=== PATIENT | female | born 1970 | race Caucasian/White ===

== ENCOUNTER 2020-01-04 06:40 | Outpatient (REF) | payer OTHER, SELFPAY | END 2020-01-04 06:41 | disposition home or self-care (01) | LOC: HO.LAB 06:40 | PROVIDERS: Visit Provider Internal Medicine | DX: Z20.828 Contact with and (suspected) exposure to other viral communicable diseases (principal) | CPT/HCPCS: C9803; U0003 ==

== ENCOUNTER 2020-01-25 10:30 | Outpatient (REF) | payer OTHER, SELFPAY ==
[2020-01-25 11:33] LABS: MANUAL DIFF FLAG NO
[2020-01-25 11:49] LABS: Glucose Urine UA NEG (NEG); Leukocyte Esterase Urine TRACE (NEG); Nitrite Urine NEG (NEG); PH 7.5 (5.0-8.0); Urine Blood NEG (NEG); Urine Ketones NEG (NEG); Urine Protein NEG (NEG-TRACE)
[2020-01-25 11:51] LABS: Basophils Percent Auto 0.6 % (0-2); Eosinophils Absolute Auto 0.1 X10*3/uL (0.0-0.4); Eosinophils Percent Auto 2.5 % (0-4); Hematocrit 37.1 % (37-47); Hemoglobin 12.6 g/dl (12.0-16.0); Lymphocytes Absolute Auto 1.6 X10*3/uL (1.2-4.9); Lymphocytes Percent Auto 43.9 % (20-40); Mean Corpuscular Hemoglobin 30.5 pg (27.0-33.0); Mean Corpuscular Volume 89.8 fL (80-98); Mean Platelet Volume 11.9 fL (9.4-12.3); Monocytes Absolute Auto 0.3 X10*3/uL (0.1-1.2); Monocytes Percent Auto 8.8 % (2-11); Neutrophils Absolute Auto 1.6 X10*3/uL (2.0-8.3); Neutrophils Percent Auto 44.2 % (45-73); Platelet Count 145 X10*3/uL (160-400); Red Blood Count 4.13 X10*6/uL (4.20-5.50); Red Cell Distribution Width 12.1 % (11.0-16.0); White Blood Count 3.5 X10*3/uL (4.8-10.8)
[2020-01-25 11:55] LABS: Anion Gap 14 (12-20); Blood Urea Nitrogen 12 mg/dL (9-16); Calcium 9.2 mg/dL (8.4-10.2); Carbon Dioxide 26 mmol/L (22-29); Chloride 105 mmol/L (96-108); Cholesterol 203 mg/dL; Estimated Glomerular Filt Rate > 60; Glucose Fasting 91 mg/dL (60-99); HDL Cholesterol 61 mg/dL; LDL Cholesterol Calculated 117 mg/dl; Sodium 141 mmol/L (135-145); Triglycerides 127 mg/dL
[2020-01-25 11:57] LABS: Appearance Urine CLEAR; Color Urine STRAW
[2020-01-25 11:58] LABS: Alanine Aminotransferase 18 U/L (0-31); Albumin Level 4.3 g/dL (3.5-5.0); Alkaline Phosphatase 87 U/L (39-117); Anion Gap 12 (12-20); Aspartate Amino Transferase 23 U/L (5-31); Bilirubin Total 0.6 mg/dL (0.0-1.0); Blood Urea Nitrogen 13 mg/dL (9-16); C Reactive Protein 0.08 mg/dL (< or = 0.50); Calcium 9.2 mg/dL (8.4-10.2); Carbon Dioxide 27 mmol/L (22-29); Chloride 106 mmol/L (96-108); Estimated Glomerular Filt Rate > 60; Glucose Random 92 mg/dL (60-115); Sodium 141 mmol/L (135-145); Total Protein 6.8 g/dL (6.5-8.0)
[2020-01-25 12:08] LABS: Bacteria Urine 2+ /LPF; RBC Urine 0 /HPF (0); Squamous Epithelial Cell Urine 3+ /LPF
[2020-01-25 12:54] LABS: Erythrocyte Sedimentation Rate 5 MM/HR (0-20)
[2020-01-26 10:52] LABS: Complement C3 100 mg/dL (83-193)
[2020-01-27 13:27] LABS: Anti DNA DS Antibody 4 IU/mL
== END 2020-01-25 10:31 | disposition home or self-care (01) ==
LOC: HO.LAB 10:30
PROVIDERS: Absent Provider Nurse Practitioner Family; PCP Family Medicine; Visit Provider Student in an Organized Health Care Education/Training Program
DX: R07.1 Chest pain on breathing (principal)
CPT/HCPCS: 36415; 80048; 80053; 80061; 81001; 85025; 85652; 86140; 86160; 86225

== ENCOUNTER → 2020-02-02 13:01 | Outpatient (BNVA) | payer OTHER, SELFPAY | PROVIDERS: Visit Provider Student in an Organized Health Care Education/Training Program | DX: Z76.89 Persons encountering health services in other specified circumstances (principal) ==

== ENCOUNTER 2020-02-16 07:07 | Outpatient (REF) | payer OTHER, SELFPAY | END 2020-02-16 07:08 | disposition home or self-care (01) | LOC: HO.LAB 07:07 | PROVIDERS: Visit Provider Internal Medicine | DX: Z20.828 Contact with and (suspected) exposure to other viral communicable diseases (principal) | CPT/HCPCS: C9803; U0003 ==

== ENCOUNTER 2020-04-13 15:32 | Outpatient (REF) | payer OTHER, SELFPAY ==
[2020-04-13 16:16] LABS: MANUAL DIFF FLAG NO
[2020-04-13 16:21] LABS: Basophils Percent Auto 0.3 % (0-2); Eosinophils Absolute Auto 0.1 X10*3/uL (0.0-0.4); Eosinophils Percent Auto 2.7 % (0-4); Hematocrit 38.6 % (37-47); Hemoglobin 12.9 g/dl (12.0-16.0); Lymphocytes Absolute Auto 1.5 X10*3/uL (1.2-4.9); Mean Corpuscular HGB Conc 33.4 g/dl (31.0-35.0); Mean Corpuscular Hemoglobin 30.6 pg (27.0-33.0); Mean Corpuscular Volume 91.7 fL (80-98); Mean Platelet Volume 11.8 fL (9.4-12.3); Monocytes Absolute Auto 0.4 X10*3/uL (0.1-1.2); Monocytes Percent Auto 11.2 % (2-11); Neutrophils Absolute Auto 1.6 X10*3/uL (2.0-8.3); Neutrophils Percent Auto 44.8 % (45-73); Platelet Count 142 X10*3/uL (160-400); Red Blood Count 4.21 X10*6/uL (4.20-5.50); Red Cell Distribution Width 12.1 % (11.0-16.0); White Blood Count 3.7 X10*3/uL (4.8-10.8)
[2020-04-13 16:22] LABS: Glucose Urine UA NEG (NEG); Leukocyte Esterase Urine NEG (NEG); Nitrite Urine NEG (NEG); Specific Gravity - Urine 1.015 (1.005-1.025); Urine Blood NEG (NEG); Urine Ketones NEG (NEG); Urine Protein NEG (NEG-TRACE)
[2020-04-13 16:26] LABS: Appearance Urine CLEAR; Color Urine YELLOW
[2020-04-13 16:49] LABS: Alanine Aminotransferase 18 U/L (0-31); Albumin Level 4.3 g/dL (3.5-5.0); Alkaline Phosphatase 101 U/L (39-117); Anion Gap 10 (12-20); Aspartate Amino Transferase 21 U/L (5-31); Bilirubin Total 0.3 mg/dL (0.0-1.0); Blood Urea Nitrogen 16 mg/dL (9-16); C Reactive Protein 0.08 mg/dL (< or = 0.50); Calcium 9.1 mg/dL (8.4-10.2); Carbon Dioxide 29 mmol/L (22-29); Chloride 106 mmol/L (96-108); Cholesterol 197 mg/dL; Estimated Glomerular Filt Rate > 60; Glucose Fasting 74 mg/dL (60-99); HDL Cholesterol 59 mg/dL; LDL Cholesterol Calculated 100 mg/dl; Sodium 141 mmol/L (135-145); Total Protein 6.7 g/dL (6.5-8.0); Triglycerides 193 mg/dL
[2020-04-13 17:10] LABS: TSH reflex Free T4 1.72 uIU/mL (0.32-4.0)
[2020-04-13 17:50] LABS: Bacteria Urine 1+ /LPF; RBC Urine 0-2 /HPF (0); Renal Epithelial Cells Urine 1+ /LPF; Squamous Epithelial Cell Urine 2+ /LPF; WBC Urine 0-2 /HPF (0-4)
[2020-04-13 18:20] LABS: Erythrocyte Sedimentation Rate 2 MM/HR (0-20)
[2020-04-14 14:16] LABS: Complement C3 105 mg/dL (83-193)
[2020-04-16 13:46] LABS: Anti DNA DS Antibody 5 IU/mL
== END 2020-04-13 15:33 | disposition home or self-care (01) ==
LOC: HO.LAB 15:32
PROVIDERS: Absent Provider Student in an Organized Health Care Education/Training Program; PCP Family Medicine; Visit Provider Family Medicine
DX: Z00.00 Encounter for general adult medical examination without abnormal findings (principal); M32.9 Systemic lupus erythematosus, unspecified
CPT/HCPCS: 36415; 80053; 80061; 81001; 84443; 85025; 85652; 86140; 86160; 86225

== ENCOUNTER 2020-10-10 18:09 | Outpatient (REF) | payer OTHER, SELFPAY | END 2020-10-10 18:10 | disposition home or self-care (01) | LOC: HO.LNP 18:09 | PROVIDERS: Visit Provider Family Medicine | DX: Z20.822 Contact with and (suspected) exposure to COVID-19 (principal); B34.9 Viral infection, unspecified | CPT/HCPCS: U0003; U0005 ==

== ENCOUNTER 2020-11-07 12:47 | Outpatient (REF) | payer OTHER, SELFPAY ==
--- NOTE | ~2020-11-07 | CT_ITS ---
EXAMINATION: CT CHEST WITHOUT CONTRAST CLINICAL INFORMATION: Followup pulmonary nodules. COMPARISON: Previous chest CT June 2018 TECHNIQUE: Multidetector volumetric CT imaging of the chest was done. Axial MIP volume rendering provided. Sagittal and coronal reformatted images were obtained. This CT examination was performed using dose optimization techniques as appropriate, variously including the following: *Automated exposure control *Adjustment of mA and/or kV according to patient size (this includes techniques or standardized protocols for targeted exams where dose is matched to indication/reason for exam; i.e. extremities or head) *Use of iterative reconstruction technique DLP: 125 mGy-cm FINDINGS: WILDLIFE ENFORCEMENT MAJOR: Unremarkable. LUNGS: The small calcified and noncalcified pulmonary nodules are stable. The largest pulmonary nodules are a 4 mm right upper lobe nodule axial image 110 series 5 and 4 mm peripheral or subpleural left lower lobe nodule axial image 375 series 5. No new pulmonary nodule is seen. There is a small left posterior diaphragmatic hernia containing fat. MEDIASTINUM: The mediastinum is normal. PLEURA: There is no pleural effusion. No pleural mass or thickening. AXILLA: No lymphadenopathy. UPPER ABDOMEN: There are small 5 mm low-attenuation liver lesions in the right lobe that are stable axial image 49 and 56 series 3. These probably represent small cysts. OSSEOUS STRUCTURES: There is curvature of the thoracic spine to the right. CT/CT chest wo con IMPRESSION: Stable small pulmonary nodules.
== END 2020-11-07 12:48 | disposition home or self-care (01) ==
LOC: HO.CT 12:47
PROVIDERS: PCP Family Medicine; Visit Provider Family Medicine
DX: R91.8 Other nonspecific abnormal finding of lung field (principal)
CPT/HCPCS: 71250

== ENCOUNTER → 2021-03-09 14:21 | Outpatient (BNVA) | payer OTHER, SELFPAY | PROVIDERS: PCP Family Medicine; Referring Provider Family Medicine; Visit Provider Nurse Practitioner Family | DX: Z12.11 Encounter for screening for malignant neoplasm of colon (principal); K59.04 Chronic idiopathic constipation | CPT/HCPCS: 99202 ==

== ENCOUNTER 2021-04-19 15:58 | Outpatient (REF) | payer OTHER, SELFPAY ==
--- NOTE | ~2021-04-19 | XR_ITS ---
EXAMINATION: XR CHEST CLINICAL INFORMATION: Chest pain COMPARISON: November 07, 2020 TECHNIQUE: 2 views of the chest were obtained. FINDINGS: There is no evidence of acute parenchymal disease, pneumothorax, or pleural effusion. Heart normal size. No evidence of pulmonary edema. XR/XR chest 2V IMPRESSION: No acute disease.
== END 2021-04-19 15:59 | disposition home or self-care (01) ==
LOC: HO.HMGCX 15:58
PROVIDERS: PCP Family Medicine
DX: R07.9 Chest pain, unspecified (principal)
CPT/HCPCS: 71046

== ENCOUNTER 2021-12-25 07:25 | Day surgery (SDC) | payer OTHER, SELFPAY ==
--- NOTE | 2021-12-22 08:19 | HO.ANESPROP2 ---
Documented by User: Samantha Rivas NP 12/22/21 08:20 HPI - Anesthesia Eval Consult details Narrative: 51yo F for Colonoscopy Plaquenil for Lupus PMFSH Active Problems Active Problems: All Active Problems (Updated 12/19/21 @ 11:01 by Ngozi Rose, RN) Lupus (Acute) Laboratory examination ordered as part of a routine general medical examination (Acute) Screening for colon cancer (Acute) Breast cancer screening by mammogram (Acute) Screening for cervical cancer (Acute) Adult general medical exam (Acute) Viral illness (Acute) Proctalgia (Acute) Pulmonary nodules (Acute) Right-sided chest pain (Acute) Intercostal pain (Acute) Inspiratory pain (Acute) Past Medical History Medical History (Updated 12/19/21 @ 11:01 by Ngozi Rose RN) History of constipation History of lupus Intercostal pain Family History Family History Father CVD (cardiovascular disease) Cancer HTN (hypertension) Stroke Mother Alzheimer disease Sister No problems noted. Daughter No problems noted. Surgical History Surgical History No pertinent past surgical history Social History Social History Alcohol intake: current Alcohol intake frequency: holidays/special occasions only Patient Tobacco Use Status: Never used Tobacco Have you been hit, kicked, punched, or otherwise hurt by someone within the past year? If so, by whom?: No Are you DNR?: No Advance Directives: No Advance Directives Information Provided: Yes Recently lost weight without trying: No Nutrition Risks: No Nutritional Risk Patient : No Meds Allergies Allergy/AdvReac Type Severity Reaction Status Date / Time Penicillins [PENICILLINS] Allergy Unknown RASH Verified 04/19/21 15:04 Exam Exam Date and Time: December 22, [id number] Assessment and Plan Assessment Anesthesia Assessment: Chart Reviewed Documented by User: Alondra Montero MD 12/25/21 08:02 [facility] Past Medical History Medical History (Updated 12/19/21 @ 11:01 by Ngozi Rose RN) History of constipation History of lupus Intercostal pain Family History Family History Father CVD (cardiovascular disease) Cancer HTN (hypertension) Stroke Mother Alzheimer disease Sister No problems noted. Daughter No problems noted. Surgical History Surgical History No pertinent past surgical history History of Problems with Anesthesia: No Social History Social History Alcohol intake: current Alcohol intake frequency: holidays/special occasions only Patient Tobacco Use Status: Never used Tobacco Have you been hit, kicked, punched, or otherwise hurt by someone within the past year? If so, by whom?: No Are you DNR?: No Advance Directives: No Advance Directives Information Provided: Yes Recently lost weight without trying: No Nutrition Risks: No Nutritional Risk Patient : No Meds Allergies Allergy/AdvReac Type Severity Reaction Status Date / Time Penicillins [PENICILLINS] Allergy Unknown RASH Verified 04/19/21 15:04 Exam Airway Mallampati Class: II TM Dist: >3cm Neck ROM: Full Loose/Missing/Broken Teeth: No Heart: RRR Lungs: CTA Assessment and Plan Assessment Anesthesia Assessment: Anesthesia Plan Discussed Final Anesthetic Review History of Problems with Anesthesia: No NPO: Yes ASA Class: II Final Preanesthetic Review: Meds/Allgs Chart Reviewed, Consent Obtained/Reviewed and Anes Risks/Benef Reviewed Patient Risk: Low Procedure Risk: Low Anesthetic Plan Anesthetic Plan: MAC: Disposition: Standard PACU
[2021-12-25 06:08] VITALS: BMI 22.6
--- NOTE | 2021-12-25 07:14 | MHC.SHP ---
Pre-Procedural Eval Section A Date of Service: 12/25/21 The patient is an INPATIENT: No The History & Physical has been completed within 30 days and I have reviewed it.: No Section B Chief Complaint: screening Details of Present Illness: Colon cancer screening, chronic constipation Relevant Family History (Specify if Yes): No Present Medications: see Short Stay Collaborative assessment Medical History: Significant History (Inspiratory pain Intercostal pain) History of Previous Operations: No relevant previous surgery Allergies: Allergies Allergy/AdvReac Type Severity Reaction Status Date / Time Penicillins [PENICILLINS] Allergy Unknown RASH Verified 04/19/21 15:04 Review of Systems Sugical H&P ROS: Negative: Constitution, Cardiovascular, Respiratory and Gastrointestinal Exam Surgical H&P Exam: Normal: Heart, Normal: Lungs, Normal: Extremities and Normal: Abdomen Plan Diagnosis/Plan: Unchanged I have reviewed the history and physical and performed a pertinent physical examination on my patient. No changes have occurred unless specified.
[2021-12-25 07:30] VITALS: BP 100/56; PULSE 74; RESP 18; TEMP 36.3; O2SAT 97
[2021-12-25] MEDS: Lactated Ringers 1,000 ML 100 ML IVCONT (07:50)
--- NOTE | 2021-12-25 08:38 | P.BOP_ITS ---
Brief Operative Note Date of Service: 12/25/21 Pre-op diagnosis: colon cancer screening, hemorrhoids Post-op diagnosis: other ( colon polyp, diverticulosis, hemorrhoids) Procedure: COLONOSCOPY TO CECUM WITH BIOPSIES Surgeon: Meenu Burnette MD Anesthesia: MAC Was an Automation And Controls Manager used for this Procedure?: Yes Automation And Controls Manager: Martine Angel Estimated blood loss (mL): 0 Pathology: other (A. ascending colon polyp) Condition: stable Disposition: PACU
--- NOTE | 2021-12-25 08:39 | W.PM.OPN ---
Operative Note Operative Note Date of Service: 12/25/21 Narrative: Pre-op diagnosis: colon cancer screening, hemorrhoids Post-op diagnosis:?other ( colon polyp, diverticulosis, hemorrhoids) Surgeon: Meenu Burnette MD Anesthesia:?MAC COLONOSCOPY TILL CECUM WITH BIOPSIES Consent: Indications for the procedure and potential complications of bleeding, perforation, reaction to medications and missed diagnosis were discussed with the patient and informed consent was obtained. Instrument: Olympus PCF H 190 L variable stiffness pediatric colonoscope Monitoring: Vital signs and clinical assessment, intermittent blood pressure monitoring, continuous EKG monitoring, Pulse oximetry and Carbon Dioxide monitoring were done throughout the procedure. Colon withdrawl time was 20 minutes. Procedure: The patient was placed in the left lateral decubitis position and pre-procedure medications were administered. After a digital rectal examination of the ano-rectum, the video colonoscope was inserted into the rectum and advanced through the colon to the cecum. The colonoscope was slowly withdrawn in a retrograde panoramic fashion and the colon mucosa was carefully examined including a retroflexed view of the rectum. Findings and interventions are described below. Procedure Difficulty: colon was long and tortuous and there was some loop formation Findings: Terminal Ileum: Not evaluated Cecum: Normal Ascending Colon: A 5-6 mm sessile polyp in the distal AC - removed with a cold bx Transverse Colon: Normal Descending Colon: Normal Sigmoid Colon: Moderate diverticulosis Rectum: Normal Ano-rectum: Moderate to large internal hemorrhoids and perianal skin tags Colon preparation: Good Impression and Post Procedure Diagnosis: Colonoscopy Findings: One small polyp removed Moderate diverticulosis seen in the sigmoid colon Moderate to large hemorrhoids on retroflexed exam. Plan: Await pathology results Patient has an appointment on 01/08/22 in the GI Clinic with Janae Gaines FNP-BC. Repeat Colonoscopy interval based on path results - in 5 years if polyps are adenomatous and 10 years if polyps are hyperplastic. Above findings were reviewed with the patient and hemorrhoids, colon polyps and diverticulosis handouts were given in the discharge area. Hydrocortisone cream was prescribed for hemorrhoids since patient is not getting relief with preparation H.
[2021-12-25 09:18] VITALS: BP 96/69; PULSE 74; RESP 16; TEMP 36.6; O2SAT 98
[2021-12-25 09:33] VITALS: BP 101/59; PULSE 65; RESP 16; O2SAT 98
== END 2021-12-25 10:20 | disposition home or self-care (01) ==
PROVIDERS: PCP Family Medicine; Visit Provider Internal Medicine Gastroenterology
PROC: 0DJD8ZZ Inspection of Lower Intestinal Tract, Via Natural or Artificial Opening Endoscopic (ICD-10-PCS; CPT 45378; principal; 2021-12-25 08:30)
DX: Z12.11 Encounter for screening for malignant neoplasm of colon (principal); K63.5 Polyp of colon; K57.30 Diverticulosis of large intestine without perforation or abscess without bleeding; K64.8 Other hemorrhoids; K59.04 Chronic idiopathic constipation; R07.82 Intercostal pain; Z88.0 Allergy status to penicillin
CPT/HCPCS: 45380; 88305

== ENCOUNTER → 2022-01-08 09:40 | Outpatient (BNVA) | payer OTHER, SELFPAY | PROVIDERS: PCP Family Medicine; Visit Provider Nurse Practitioner Family | DX: K57.90 Diverticulosis of intestine, part unspecified, without perforation or abscess without bleeding (principal); K59.01 Slow transit constipation; K64.9 Unspecified hemorrhoids; Z98.890 Other specified postprocedural states | CPT/HCPCS: 99212 ==

== ENCOUNTER 2022-02-27 15:33 | Outpatient (REF) | payer OTHER, SELFPAY ==
--- NOTE | ~2022-02-27 | XR_ITS ---
EXAMINATION: XR SHOULDER, LEFT CLINICAL INFORMATION: M25.512 - Pain in left shoulder COMPARISON: CT chest 11/07/2020. z chest radiograph 11/24/2007 TECHNIQUE: Left shoulder is imaged in 4 views. FINDINGS: No fracture, dislocation, destructive process, or visible rotator cuff calcifications. Acromioclavicular alignment normal, similar to 2008. No gross arthropathy. There is borderline spurring from the inferior glenoid likely at origin inferior glenohumeral ligament. XR/XR shoulder LT min 2V IMPRESSION: Unremarkable left shoulder.
== END 2022-02-27 15:34 | disposition home or self-care (01) ==
LOC: HO.HMGCX 15:33
PROVIDERS: PCP Family Medicine; Visit Provider Family Medicine
DX: M25.512 Pain in left shoulder (principal)
CPT/HCPCS: 73030

== ENCOUNTER → 2022-04-03 09:22 | Outpatient (BNVA) | payer OTHER, SELFPAY | PROVIDERS: PCP Family Medicine; Visit Provider Nurse Practitioner Family | DX: K57.30 Diverticulosis of large intestine without perforation or abscess without bleeding (principal); K59.04 Chronic idiopathic constipation; K64.9 Unspecified hemorrhoids | CPT/HCPCS: 99212 ==

== ENCOUNTER 2023-01-09 16:13 | Outpatient (AMB) | payer OTHER, SELFPAY ==
--- NOTE | 2023-01-09 16:43 | AM.OFFVISNUR ---
Intake Intake Visit Reasons: flu shot Allergies Penicillins [PENICILLINS] Allergy (Unknown, Verified 04/03/22 09:30) RASH Office Procedures Flu Questionnaire Does the patient have a severe egg allergy?: No Does the patient have severe life threatening allergies?: No Does the patient have a fever or illness today?: No Has the patient ever had Guillain-Hamilton Syndrome?: No Has the patient ever had any past reaction to a flu shot?: No Immunizations flu vacc [id number] 6mos up(PF) 60 mcg(15 mcgx4)/0.5 mL IM syringe Performing Provider: Tomas Martin MD Performing Location: [facility] Administered by: Ngozi Reed RN on 01/09/23 16:44 Dose Route Admin Location Dispensed Lot Number Expiration Date NDC [employer] Chair 0.5 mL IM Right Deltoid 0.5 mL [id number] 08/18/23 24686-379-29 [employer] VIS Given Date VIS Provided VIS Publication Date 01/09/23 Single Vaccine 20 Eligibility Eligibility Date Funding Source Not VF Eligible 01/09/23 Private Administration Comments: declined vis Coding Assessment & Plan Assessment & Plan Orders: Orders Influenza [id number] Immunization Today Z23 - Encounter for immunization
== END 2023-01-09 16:42 | disposition home or self-care (01) ==
LOC: HO.HMGFM 16:13
PROVIDERS: PCP Family Medicine; Visit Provider Family Medicine
DX: Z23 Encounter for immunization (principal)
CPT/HCPCS: 90471; 90686

== ENCOUNTER 2024-02-04 08:34 | Outpatient (AMB) | payer OTHER, SELFPAY ==
[2024-02-04 08:48] VITALS: BP 108/60; PULSE 72; O2SAT 96; BMI 24.5
--- NOTE | 2024-02-04 08:48 | A.OFFVIS_ITS ---
Vital Signs 02/04/24 08:48 Height 5 ft 6 in Weight 152 lb 1.903 oz BMI 24.5 BP 108/60 Blood Pressure Location Lt brachial Position Sitting Pulse 72 Pulse Source Pulse Oximeter Pulse Oximetry (%) 96 Oxygen Delivery Method Room Air Intake Visit Reasons: Lupus Intake Note: Patient is here to follow up on lupus today. Allergies Penicillins [PENICILLINS] Allergy (Unknown, Verified 02/04/24 08:49) RASH HPI HPI Lupus: Details: She has had labs done online revealing elevated alkaline phosphatase She gets a nose sore every 4months but not now. She had viral illness with secondary pneumonia treated with antibiotic after thanksgi. No fevers, rash, dyspnea, pleurisy, oral ulcers, sicca symptoms, Raynaud's phenomenon and Urinary symptoms. [facility] Medical History (Updated 02/04/24 @ 12:18 by Kojo Gallegos MD) Diverticulosis History of constipation History of lupus Intercostal pain Surgical History Hx of colonoscopy No pertinent past surgical history Family History Father CVD (cardiovascular disease) Cancer HTN (hypertension) Stroke Mother Alzheimer disease Sister No problems noted. Daughter No problems noted. Social History Housing: House Alcohol intake: current Alcohol intake frequency: holidays/special occasions only Patient Tobacco Use Status: Never used Tobacco e-Cigarette/Vaping Use: Never Used Second Hand Smoke Exposure: No service: No Current occupational status: employed Current occupational exposures/hazards: No Cognitive needs: No Hearing needs: No Vision needs: No Physical Exam Vital Signs: Last Vital Signs Pulse 72 02/04/24 08:48 BP 108/60 02/04/24 08:48 Pulse Ox 96 02/04/24 08:48 Oxygen Delivery Method Room Air 02/04/24 08:48 BMI result Body Mass Index 24.5 Assessment & Plan Assessment & Plan (1) SLE (systemic lupus erythematosus): Comment: Controlled on hydroxychloroquine. She had online testing done, which revealed elevated alkaline phosphatase. She had a URI prior to doing labs, which may influence lab results. I will check alkaline phosphatase this visit. If it remains elevated, I will ask her to follow-up with PCP. Less likely alkaline phosphatase elevation is related to chronic NSAID use as it is more common to have mild transaminitis with chronic NSAID use rather than isolated elevation of alkaline phosphatase. Code(s): M32.9 - Systemic lupus erythematosus, unspecified Category: Medical Plan: Continue hydroxychloroquine 200 mg daily. She has an upcoming eye exam for hydroxychloroquine surveillance Labs to evaluate for disease and drug monitoring ordered Return to clinic in 6 months. She will be in [place] until June. [facility] (2) Muscle strain of gluteal region: Comment: Left side, chronic and intermittent. She agreed to physical therapy. Code(s): S76.019A - Strain of muscle, fascia and tendon of unspecified hip, initial encounter Category: Medical Qualifiers: Encounter type: initial encounter Laterality: left Qualified Code(s): S76.012A - Strain of muscle, fascia and tendon of left hip, initial encounter Plan: PT ordered Return to clinic in 6 months Orders: Orders Creatinine Today Z79.60 - halfway (current) use of unspecified immunomodulators and immunosuppressants Protein Creatinine Ratio, Ur Today M32.9 - Systemic lupus erythematosus, unspecified Alkaline Phosphatase Today M32.9 - Systemic lupus erythematosus, unspecified Erythrocyte Sedimentation Rate Today M32.9 - Systemic lupus erythematosus, unspecified C Reactive Protein Today M32.9 - Systemic lupus erythematosus, unspecified Complete Blood Count Auto Diff Today Z79.60 - halfway (current) use of unspecified immunomodulators and immunosuppressants Anti Extractable Nuclear Ag Today M32.9 - Systemic lupus erythematosus, unspecified Anti DNA DS Antibody Today M32.9 - Systemic lupus erythematosus, unspecified Complement C4 Today M32.9 - Systemic lupus erythematosus, unspecified Complement C3 Today M32.9 - Systemic lupus erythematosus, unspecified UA w Microscopic Today M32.9 - Systemic lupus erythematosus, unspecified Hepatitis B,C Profile Today M32.9 - Systemic lupus erythematosus, unspecified T Spot TB Today M32.9 - Systemic lupus erythematosus, unspecified Liver Panel Today M32.9 - Systemic lupus erythematosus, unspecified Referrals Physical Medicine and Rehabilitation Referral S76.019A - Strain of muscle, fascia and tendon of unspecified hip, initial encounter Coding Level of Care Code Est Pt Level 4 (74024) Complex EM visit Add On G2211 Diagnoses SLE (systemic lupus erythematosus) M32.9 Muscle strain of left gluteal region, initial encounter S76.012A Encounter type: initial encounter Laterality: left
== END 2024-02-04 09:25 | disposition home or self-care (01) ==
PROVIDERS: PCP Internal Medicine; Visit Provider Internal Medicine Rheumatology
DX: M32.9 Systemic lupus erythematosus, unspecified (principal); S76.012A Strain of muscle, fascia and tendon of left hip, initial encounter
CPT/HCPCS: 99214

== ENCOUNTER → 2024-02-04 08:34 | Outpatient (BNVA) | payer OTHER, SELFPAY | PROVIDERS: PCP Internal Medicine; Visit Provider Internal Medicine Rheumatology ==

== ENCOUNTER 2024-02-06 10:46 | Outpatient (REF) | payer OTHER, SELFPAY ==
[2024-02-06 13:39] LABS: MANUAL DIFF FLAG NO
[2024-02-06 13:45] LABS: Basophils Percent Auto 0.7 % (0-2); Eosinophils Absolute Auto 0.1 X10*3/uL (0.0-0.4); Eosinophils Percent Auto 2.7 % (0-4); Hematocrit 37.2 % (37.0-47.0); Hemoglobin 12.9 g/dl (12.0-16.0); Imm Gran Abs Auto 0.01 X10*3/uL (0.00-0.03); Imm Gran Pct Auto 0.2 % (0.0-0.4); Lymphocytes Absolute Auto 1.4 X10*3/uL (1.2-4.9); Lymphocytes Percent Auto 33.4 % (20-40); Mean Corpuscular HGB Conc 34.7 g/dl (31.0-35.0); Mean Corpuscular Hemoglobin 30.3 pg (27.0-33.0); Mean Corpuscular Volume 87.3 fL (80.0-98.0); Mean Platelet Volume 12.4 fL (9.4-12.3); Monocytes Absolute Auto 0.4 X10*3/uL (0.1-1.2); Neutrophils Absolute Auto 2.2 x10*3/uL (2.0-8.3); Platelet Count 144 X10*3/uL (160-400); Red Blood Count 4.26 X10*6/uL (4.20-5.50); Red Cell Distribution Width 13.2 % (11.0-16.0); White Blood Count 4.1 X10*3/uL (4.8-10.8)
[2024-02-06 13:50] LABS: Appearance Urine Clear; Color Urine Yellow; Glucose Urine UA Negative (Negative); Leukocyte Esterase Urine Trace (Negative); Nitrite Urine Negative (Negative); Specific Gravity - Urine <= 1.005 (1.005-1.025); UMIC TRIGGER UA YES; Urine Blood Negative (Negative); Urine Ketones Negative (Negative); Urine Protein Negative (Neg-Trace)
[2024-02-06 13:55] LABS: Bacteria Urine None Seen (None Seen); Hyaline Casts Urine 0-2 /LPF (0-2); RBC Urine 0-2 /HPF (0-2); Squamous Epithelial Cell Urine 0-2 /HPF (0-2); WBC Urine 0-5 /HPF (0-5)
[2024-02-06 13:58] LABS: Alanine Aminotransferase 29 U/L (0-31); Alkaline Phosphatase 120 U/L (39-117); Aspartate Amino Transferase 34 U/L (5-31); Bilirubin Direct 0.2 mg/dL (0.0-0.5); Bilirubin Total 0.6 mg/dL (0.0-1.0); C Reactive Protein 0.14 mg/dL (< or = 0.50); Estimated Glomerular Filt Rate > 60; Total Protein 6.5 g/dL (6.5-8.0)
[2024-02-06 14:05] LABS: Creatinine Urine 16.66 mg/dL; Total Protein Urine Random < 7 mg/dL (<12)
[2024-02-06 14:21] LABS: HBc Num1 0.12 S/CO (0.00-0.79); HBsAGNum1 0.41 S/CO (0.00-0.99); Hepatitis B Core Antibody Nonreactive (Nonreactive); Hepatitis B Surface Antigen Negative (Negative); ~HepC Num1 0.08 S/CO (0.00-0.79); ~Hepatitis B Surface Antibody NONREACTIVE (Nonreactive); ~Hepatitis C Antibody Nonreactive (Nonreactive)
[2024-02-06 14:25] LABS: Erythrocyte Sedimentation Rate 5 MM/HR (0-20)
[2024-02-07 14:13] LABS: Anti DNA DS Antibody 3 IU/mL; SM/Ribonucleoprotein Ab <1.0 NEG AI (<1.0 NEG); Smith Protein <1.0 NEG AI (<1.0 NEG)
[2024-02-07 14:49] LABS: Complement C3 122 mg/dL (83-193)
[2024-02-09 16:24] LABS: TS Negative Control Passed; TS Panel A 0; TS Panel B 1; TS Positive Control Passed; TSpotTB Negative (Negative)
== END 2024-02-06 10:47 | disposition home or self-care (01) ==
LOC: HO.HMGCLDS 10:46
PROVIDERS: PCP Internal Medicine; Visit Provider Internal Medicine Rheumatology
DX: M32.9 Systemic lupus erythematosus, unspecified (principal); Z79.60 Long term (current) use of unspecified immunomodulators and immunosuppressants
CPT/HCPCS: 36415; 80076; 81001; 82565; 82570; 84156; 85025; 85652; 86140; 86160; 86225; 86235; 86481; 86704; 86706; 86803; 87340

== ENCOUNTER 2024-07-06 10:15 | Outpatient (REF) | payer OTHER, SELFPAY ==
--- OUTSIDE RECORDS SUMMARY | 2024-07-06 10:51 | XMS_ITS | Clinical Summary ---
Author Organization [facility] [place] [address] [place] [address] Care Team Providers Care Deputy County Counsel Name Role Phone Unavailable Primary Care Provider Unavailabl e Allergies Active Allergy Reactions Criticality Noted Date Comments Penicillanic Sulfone Bl Beta -Lactamase Inhibitors Hives 05/25/2024 Penicillins Swelling High 03/22/2024 Medications celecoxib (CeleBREX) 100 mg capsule Take 100 mg by mouth 1 (one) time each day. Active hydroxychloroqui ne (PLAQUENIL) 200 mg tablet Take by mouth. Active Active Problems No known active problems Encounters Date Type Department Care Team Description 05/25/2024 2:00 PM EDT Office Visit [facility] [address], [facility] [address] [place] [address] [place], [facility] Encounter for dental examination and cleaning without abnormal findings (Primary Dx) 05/25/2024 1:00 PM EDT Office Visit [facility] [address], [facility] [address] [place] [address] Soo Oliveira, MILES Dental caries, unspecified (Primary Dx); Impacted teeth from Last 3 Months Social History Tobacco Use Types Packs/Day Years Used Date Smoking Tobacco: Never Smokeless Tobacco: Never Tobacco Cessation:Counseling Given: Not Answered Alcohol Use Standard Drinks/Week Comments Never 0 (1 standard drink = 0.6 oz pur e alcohol) Comments Unknown Sex and Gender Information Value Date Recorded Sex Assigned at Not on file Legal Sex Female 7:09 AM PDT Gender Identity Not on file Sexual Orientation Not on file Last Filed Vital Signs Vital Sign Reading Time Taken Comments Blood Pressure 115/87 05/25/2024 1:21 PM EDT Pulse 79 05/25/2024 1:21 PM EDT Temperature - - Respiratory Rate - - Oxygen Saturation - - Inhaled Oxygen Concentration - - Weight - - Height - - Body Mass Index - - Plan of Treatment Health Maintenance Due Date Last Done Comments Dental X-Ray: Bitewings 1970 OralFitnessCheck Screening 11/24/2024 05/25/2024 Dental Oral Exam 11/25/2024 05/25/2024 Dental Prophylaxis 11/25/2024 05/25/2024 Dental CBCT 05/26/2027 05/25/2024 Dental X-Ray: Full Mouth 05/27/2027 05/25/2024 Dental X-Ray: Panoramic 05/27/2027 05/25/2024 Meningococcal B Vaccine Aged Out No l onger eligible based on patient's age to complete this topic Procedures Procedure Name Priority Date/Time Associated Diagnosis Comments ORAL HYGIENE INSTRUCTIONS Routine 05/25/2024 2:00 PM EDT Encounter for dental examination and cleaning without abnormal findings PROPHYLAXIS - ADULT Routine 05/25/2024 2 :00 PM EDT Encounter for dental examination and cleaning without abnormal findings ORAL FITNESS AMMP-8 MANUALLY RESULTED Routine 05/25/2024 1:34 PM EDT ORALFITNESSCHECK INITIAL SCREEN Routine 05/25/2024 1:00 PM EDT NEW PATIENT PHOTO INTRA ORAL Routine 05/25/2024 1:00 PM EDT NEW PATIENT PHOTO INTRA ORAL Routine 05/25/2024 1:00 PM EDT NEW PATIENT PHOTO INTRA ORAL Routine 05/25/2024 1:00 PM EDT NEW PATIENT PHOTO INTRA ORAL Routine 05/25/2024 1:00 PM EDT NEW PATIENT INTRAORAL - PERIAPICAL EACH ADDITIONAL RADIOGRAPHIC IMAGE Routine 05/25/2024 1:00 PM EDT NEW PATIENT INTRAORAL - PERIAPICAL EACH ADDITIONAL RADIOGRAPHIC IMAGE Routine 05/25/2024 1:00 PM EDT SPECIAL WARF[employer] COMBATANT CREWMAN FOUR BITEWING XRAYS Routine 1:00 PM EDT NEW PATIENT SPECIAL EXAM - ADULT Routine 05/25/2024 1:00 PM EDT NEW PATIENT INTRAORAL - PERIAPICAL FIRST RADIOGRAPHIC IMAGE Routine 05/25/2024 1:00 PM EDT SPECIAL WARF[employer] COMBATANT CREWMAN CBCT Routine 05/25/2024 1:00 PM EDT NEW PATIENT INTRAORAL - PERIAPICAL EACH ADDITIONAL RADIOGRAPHIC IMAGE Routine 05/25/2024 1:00 PM EDT NEW PATIENT INTRAORAL - PERIAPICAL EACH ADDITIONAL RADIOGRAPHIC IMAGE Routine 05/25/2024 1:00 PM EDT NEW PATIENT INTRAORAL - PERIAPICAL EACH ADDITIONAL RADIOGRAPHIC IMAGE Routine 05/25/2024 1:00 PM EDT 30 PREFABRICATED POST AND CORE IN ADDITION TO CROWN Routine 05/25/2024 12:00 AM EDT 7 CEREC CROWN Routine 05/25/2024 12:00 AM EDT 9 DL COMPOSITE FILLING Routine 12:00 AM EDT 10 CEREC CROWN Routine 05/25/2024 12:00 AM EDT 30 CEREC CROWN Routine 05/25/2024 12:00 AM EDT 30 ROOT CANAL Routine 05/25/2024 12:00 AM EDT 29 DO AMALGAM FILLING Routine 05/25/2024 12:00 AM EDT 31 MO COMPOSITE FILLING Routine 05/26/19 25 12:00 AM EDT 4 DO COMPOSITE FILLING Routine 12:00 AM EDT 3 MO COMPOSITE FILLING Routine 12:00 AM EDT 2 LO AMALGAM FILLING Routine 05/25/2024 12:00 AM EDT 12 MOD COMPOSITE FILLING Routine 025 12:00 AM EDT 15 LO AMALGAM FILLING Routine 05/25/2024 12:00 AM EDT 20 DO COMPOSITE FILLING Routine 05/26/19 25 12:00 AM EDT 13 CEREC CROWN Routine 05/25/2024 12:00 AM EDT 14 PFM CROWN Routine 05/25/2024 12:00 AM EDT 18 PFM CROWN Routine 05/25/2024 12:00 AM EDT 19 PFM CROWN Routine 05/25/2024 12:00 AM EDT from Last 3 Months Results * (ABNORMAL) Oral Fitness AMMP-8 manually resulted (05/25/2024 1:34 PM EDT) Pathologist [facility] Active matrix metalloproteina se-8 level 31(A) 0 - 10 ng/mL Saliva Salivary gland structure / Unknown 05/25/2024 1:34 PM EDT Soo Oliveira DMD PDS POCT [facility] Fi nal Result from Last 3 Months
--- OUTSIDE RECORDS SUMMARY | 2024-07-06 10:51 | XMS_ITS ---
Author Organization [facility] [employer] [facility] Address [address] [place] [address] Care Team Providers Care Equipment Application Specialist Name Role Phone AILIN BARCLAY Primary Care Provider SUNNY RODRIGUEZ [phone] Allergies Allergen (clinical drug ingredient) Drug/Non Drug Allergy documented on EMR Reaction Allergy Type Onset Date Status Penicillin Unknown Drug Allergy Active REASON FOR VISIT Test results - [facility] 06/08 Medications Medication SIG (Take, Route, Frequency, Duration) Notes Start Date End Date Status Amoxicillin-Pot Clavulanate 875-125 MG 1 tablet Orally every 12 hrs for 7 days *provider aware of mild PCN allergy Benefits outweigh risk 06/08/2024 Active Encounters Encounter Location Date Provider Diagnosis [facility] [employer] [facility] [address] [place] [address] 06/08/2024 SUNNY RODRIGUEZ Group A streptococca l infection B95.0 Assessments Encounter Date Diagnosis (ICD Code) Assessment Notes Treatment Notes Treatment Clinical Notes Section Notes 06/08/2024 Group A streptococcal infection (ICD-10 - B95.0) Plan Of Treatment Medication Medication Name Sig Start Date Stop Date Notes Amoxicillin-Pot Clavulanate 875-125 MG 1 tablet Orally every 12 hrs for 7 days 06/08/2024 *provider aware of mild PCN allergy Benefits outweigh risk Progress Notes * GHISLAINE SUN LDOB: (53 yo F)Acc No.[id number]:06/08/2024 Patient:?NATHAN SUN :1970???Age:53 Y???Sex:Female Address:[address] [place] [address], [place], [address] * Refills? Start Amoxicillin-Pot Clavulanate Tablet, 875-125 MG, Orally, 14 Tablet, 1 tablet, every 12 hrs, 7 days, Refills=0 Subjective: * Chief Complaints: * ???Test results - [facility] * Medical History:? * Surgical History:? * Hospitalization/Major Diagno stic Procedure:? * Medications:? * Allergies:?Penicillin: Aller gy - Vikki Patrick[Allergies Verified] Objective: * Vitals:? * Physical Examination:? Assessment: * Assessment: 1.?Group A streptococcal inf ection - B95.0 (Primary)??? Plan: * Treatment: * Procedure Codes:? * true * Date:? Generated for Shayna mari/Vj/eTransmitting on:?07/06/2024 10:50 AM EDT
--- OUTSIDE RECORDS SUMMARY | 2024-07-06 10:51 | XMS_ITS | Patient Health Record ---
Author Organization [facility] Address [address] [place] [address] Care Team Providers Care Leather Coverer Name Role Phone AILIN BARCLAY Primary Care Provider KATHRYN RODRIGUEZGEORGIA Roew [phone] Allergies Allergen (clinical drug ingredient) Drug/Non Drug Allergy documented on EMR Reaction Allergy Type Onset Date Status Penicillin Unknown Drug Allergy Active Results Component Value Reference Range Notes Full UA w/micro Reviewed date:06/03/2024 06:12:24 PM Interpretation: Performing Lab:1, [facility], [address], [facility], Phone - [phone] Notes/Report: CULTURE, URINE, ROUTINE-395 Reviewed date:06/08/2024 04:26:32 PM Interpretation: Performing Lab:[place] [id number], [id number] [address] Tawana Law Notes/Report: 0 CULTURE, URINE, ROUTINE SEE NOTE CULTURE, URINE, ROUTINE Micro Number: [id number] Test Status: Final Specimen Source: Clean catch Specimen Quality: Adequate Result: 10,000-49,000 CFU/mL of Group A Streptococcus isolated CULTURE, GENITAL-[id number] Reviewed date:06/08/2024 04:26:41 PM Interpretation: Performing Lab:[place] [id number], [id number] Tawana Law Notes/Report: 0 CULTURE, GENITAL SEE NOTE CULTURE, GENITAL Micro Number: [id number] Test Status: Final Specimen Source: Vaginal Specimen Quality: Adequate Result: Heavy growth of Group A Streptococcus isolated Beta-hemolytic streptococci are predictably susceptible to Penicillin and other beta-lactams. Susceptibility testing not routinely performed. Please contact the laboratory within 3 days if susceptibility testing is desired. Wet Prep Reviewed date:06/03/2024 06:12:16 PM Interpretation: Performing Lab:1, [facility], [address], [facility], Phone - [phone] Notes/Report: Reason For Referral No Information Medications Medication SIG (Take, Route, Frequency, Duration) Notes Start Date End Date Status DHEA Active Testosterone Active Amoxicillin-Pot Clavulanate 875-125 MG 1 tablet Orally every 12 hrs for 7 days *provider aware of mild PCN allergy Benefits outweigh risk 06/08/2024 Active Progesterone Active metroNIDAZOLE 0.75 % 1 applicatorful at bedtime Vaginal once a day for 5 days 06/03/2024 Active Hydroxychloroquine Sulfate 200 MG as directed Orally Active Social History Tobacco Use: Social History Observation Description Date Details (start date - stop date) Never Smoker NA - NA Tobacco Control (Standard) Question Answer Notes Tobacco use: Nonsmoker Vital Signs Heart Rate 80 /min 06/03/2024 Temperature 97.3 degrees Fahrenheit 06/03/2024 Blood pressure diastolic 70 mm Hg 06/03/2024 Oximetry 97 % 06/03/2024 Height 65 in 06/03/2024 BMI Percentile 25.09 kg/m2 06/03/2024 Blood pressure systolic 110 mm Hg 06/03/2024 Weight 150.8 lbs 06/03/2024 Procedures Procedure Date Ordered Date Performed Result Body Sit e PELVIC EXAMINATION 06/03/2024 N/A Encounters Encounter Location Date Provider Diagnosis [facility] [address] [place] [address] 06/03/2024 SUNNY RODRIGUEZ Vaginal discharge N89.8 and Vaginal itching N89.8 [facility] [address] [place] [address] 06/03/2024 SUNNY ERACE [facility] [address] [place] [address] 06/08/2024 SUNNY RODRIGUEZ Group A streptococca l infection B95.0 Assessments Encounter Date Diagnosis (ICD Code) Assessment Notes Treatment Notes Treatment Clinical Notes Section Notes 06/03/2024 Vaginal discharge (ICD-10 - N89.8) Pt advised to wash with fragrence free soaps and avoid tight fitting clothes. Will obtain vaginal swab/ culture and call pt with the results. RTC if symptoms do not improve or worsen. 06/08/2024 Group A streptococcal infection (ICD-10 - B95.0) 06/03/2024 Vaginal itching (ICD-10 - N89.8) Plan Of Treatment Pending Test Test Name Order Date PELVIC EXAMINATION 06/03/2024 Wet Prep 06/03/2024 Medical (General) History Medical History History ICD Code Lupus Surgical History Surgery Date(Month/Year) ACL 04/23/2023
--- OUTSIDE RECORDS SUMMARY | 2024-07-06 10:51 | XMS_ITS | Clinical Summary ---
Author Organization [facility] Address [address] [place] [address] Care Team Providers Care Patient Financial Services Coordinator Name Role Phone Unavailable Primary Care Provider Unavailabl e Social History Tobacco Use Types Packs/Day Years Used Date Smoking Tobacco: Never Assessed Comments Unknown Sex and Gender Information Value Date Recorded Sex Assigned at Not on file Legal Sex Female 1:10 PM EDT Gender Identity Not on file Sexual Orientation Not on file Plan of Treatment Health Maintenance Due Date Last Done Comments Hepatitis C Virus Screening 1970 HIV Screening 1981 DTaP/Tdap/Td Vaccines (1 - Tdap) 06/14/1987 Hepatitis B Vaccines (1 of 3 - 19+ 3-dose series) 05/20 Pneumococcal Vaccines 50+ (1 of 1 - PCV) 2018 Zoster (Shingles) Vaccine (1 of 2) 2018 COVID-19 Vaccine (1 - 2023- season) 2023
--- OUTSIDE RECORDS SUMMARY | 2024-07-06 10:51 | XMS_ITS ---
Author Organization [facility] [employer] Address [address] [place] [address] Care Team Providers Care Beach Expert Name Role Phone AILIN BARCLAY Primary Care Provider [phone] SUNNY RODRIGUEZ [phone] REASON FOR VISIT Lab Result Medications Medication SIG (Take, Route, Fr equency, Duration) Notes Start Date End Date Status metroNIDAZOLE 0.75 % 1 applicatorful at bedtime Vaginal once a day for 5 days 06/03/2024 Ac tive Encounters Encounter Location Date Provider Diagnosis [facility] [address] [place] [address] 06/03/2024 SUNNY RODRIGUEZ Plan Of Treatment Medication Medication Name Sig Start Date Stop Date Notes metroNIDAZOLE 0.75 % 1 applicatorful at bedtime Vaginal once a day for 5 days 06/03/2024 Progress Notes * GHISLAINE SUN LDOB: (53 yo F)Acc No.[id number]:06/03/2024 Patient:?NATHAN SUN :1970???Age:53 Y???Sex:Female Address:[address] [place] [address], [place], [address] * Refills? Start metroNIDAZOLE Gel, 0.75 %, Vaginal, 5 each, 1 applicatorful at bedtime, once a day, 5 days, Refills=0 * true * Date:? Generated for Shayna mari/Vj/Juliann on:?07/06/2024 10:51 AM EDT
--- OUTSIDE RECORDS SUMMARY | 2024-07-06 10:51 | XMS_ITS ---
[facility] Organization [facility] Address [address] [place] [address] Care Team Providers Care Exhibit Technician Name Role Phone AILIN BARCLAY Primary Care Provider [phone] CHERYLYANROSHNI [phone] Allergies Allergen (clinical drug ingredient) Drug/Non Drug Allergy documented on EMR Reaction Allergy Type Onset Date Status Penicillin Unknown Drug Allergy Active Results Component Value Reference Range Notes Full UA w/micro Reviewed date:06/03/2024 06:12:24 PM Interpretation: Performing Lab:1, [facility], [address], [address], [facility], Phone - [phone] Notes/Report: CULTURE, URINE, ROUTINE-395 Reviewed date:06/08/2024 04:26:32 PM Interpretation: Performing Lab:[place] [id number], [id number] [address] Tawana Law Notes/Report: 0 CULTURE, URINE, ROUTINE SEE NOTE CULTURE, URINE, ROUTINE Micro Number: [id number] Test Status: Final Specimen Source: Clean catch Specimen Quality: Adequate Result: 10,000-49,000 CFU/mL of Group A Streptococcus isolated CULTURE, GENITAL-4558 Reviewed date:06/08/2024 04:26:41 PM Interpretation: Performing Lab:[place], [id number], [id number] [address] Taw[address] Law Notes/Report: 0 CULTURE, GENITAL SEE NOTE CULTURE, GENITAL Micro Number: [id number] Test Status: Final Specimen Source: Vaginal Specimen Quality: Adequate Result: Heavy growth of Group A Streptococcus isolated Beta-hemolytic streptococci are predictably susceptible to Penicillin and other beta-lactams. Susceptibility testing not routinely performed. Please contact the laboratory within 3 days if susceptibility testing is desired. REASON FOR VISIT Patient complains of vaginal discharge with pruritus x 1 month - Pt was taking Metronidazole x 7 days, no relief with antibiotic........DYANA Malik Medications Medication SIG (Take, Route, Frequency, Duration) Notes Start Date End Date Status DHEA Active Testosterone Active Progesterone Active Hydroxychloroquine Sulfate 2 00 MG as directed Orally Active Social History Tobacco Use: Social History Observation Description Date Details (start date - stop date) Never Smoker NA - NA Tobacco Control (Standard) Question Answer Notes Tobacco use: Nonsmoker Vital Signs Weight 150.8 lbs 06/03/2024 Height 65 in 06/03/2024 Blood pressure systolic 110 mm Hg 06/04/19 25 Blood pressure diastolic 70 mm Hg 025 Temperature 97.3 degrees Fahrenheit 06/04/19 25 Oximetry 97 % 06/03/2024 Heart Rate 80 /min 06/03/2024 BMI Percentile 25.09 kg/m2 06/03/2024 Procedures Procedure Date Ordered Date Performed Result Body Sit e PELVIC EXAMINATION 06/03/2024 N/A Encounters Encounter Location Date Provider Diagnosis [facility] [address] [place] [address] 06/03/2024 ROSHNI ERACE Vaginal discharge N89.8 and Vaginal itching N89.8 Assessments Encounter Date Diagnosis (ICD Code) Assessment Notes Treatment Notes Treatment Clinical Notes Section Notes 06/03/2024 Vaginal discharge (ICD-10 - N89.8) Pt advised to wash with fragrence free soaps and avoid tight fitting clothes. Will obtain vaginal swab/ culture and call pt with the results. RTC if symptoms do not improve or worsen. 06/03/2024 Vaginal itching (ICD-10 - N89.8) Plan Of Treatment Treatment Notes Assessment Notes Vaginal discharge Pt advised to wash w ith fragrence free soaps and avoid tight fitting clothes. Will obtain vaginal swab/ culture and call pt with the results. RTC if symptoms do not improve or worsen. Pending Test Test Name Order Date PELVIC EXAMINATION 06/03/2024 Wet Prep 06/03/2024 Progress Notes * GHISLAINE SUN LDOB: (54 yo F)Acc No.[id number]:06/03/2024 Patient:?NATHAN SUN Provider:?Roshni Rodriguez :1970???Age:53 Y???Sex:Female D ate:06/03/2024 Address:[address], [facility] Pcp:AILIN BARCLAY Subjective: * Chief Complaints: * ???Patient complains of vagi nal discharge with pruritus x 1 month - Pt was taking Metronidazole x 7 days, no relief with antibiotic........DYANA Malik * HPI: ???General Notes:?54 yo pt presents with complaints of vaginal itching and discharge for 1 month. Pt states she was treated at another for BV with metrondiazole?with no relief, she finished the medication regimen around 3 weeks ago. Pt states she continues to have large amount of thin yellow/ gonzalez discharge without odor and intense vaginal itching. Pt reports being monogamous and sexually active only with her fiance. Pt denies abdominal pain/ cramping, flank pain, urinary urgency/ frequency, dysuria, fever, chills, body aches, SOB, or CP. * ROS:?See HPI. * Medical History:? * Surgical History:?ACL 2023 * Hospitalization/Major Diagno stic Procedure:? * Social History:?Patient Questionnaire:?Other Habits?Do you drink alcohol??Yes on a rare occasion ?Have you used drugs other than those for medical reasons for the past 12 months??No ???Tobacco Use:?Tobacco Control (Standard)?Tobacco use:?Nonsmoker * Medications:?TakingDHEA Prog esterone Testosterone Hydroxychloroquine Sulfate 200 MG Tablet as directed Orally Medication List reviewed and reconciled with the patientTaking DHEA Taking Progesterone Taking Testosterone Taking Hydroxychloroquine Sulfate 200 MG Tablet as directed Orally Medication List reviewed and reconciled with the patient * Allergies:?Penicillinno[Arvin rgies Verified] Objective: * Vitals:?Wt: 150.8 lbs, Ht: 6 5 in, BP:110/70mm Hg, Temp:97.3F, Oxygen sat %:97%, HR:80/min, BMI:25.09Index, Ht-cm: 165.1 cm, Wt-k.4. * Examination: ???General Examination: ?GENERAL APPEARANCE:?pleasant, well nourished, well developed, in no acute distress, commissioner of conciliation present in room.?HEART:?regular rate and rhythm.?LUNGS:?clear to auscultation bilaterally.?ABDOMEN:?bowel sounds present, soft, nontender, nondistended.?NEUROLOGIC:?alert and oriented.?Genitourinary - Female: ?EXTERNAL GENITALS:?normal, no lesions.?URETHRAL MEATUS:?normal.?VAGINA:?thin yellowish discharge.?CERVIX:?inflamed.? Assessment: * Assessment: 1.?Vaginal discharge - N89.8 (Primary)???2.?Vaginal itching - N89.8??? Plan: * Treatment: 2.?Vaginal itching?LAB: CULTURE, URINE, ROUTINE-395 (Collection Date & Time - 06/03/2024 11:55 AM) ?LAB: Full UA w/micro (Collection Date & Time - 06/03/2024 11:56 AM) * Labs:? * ?Lab: Full UA w/micro (C ollection Date & Time - 06/03/2024 11:56 AM) ? Value Reference Range ?Color Yellow Yellow - * ?Clarity Clear Clear - * ?Specific [place] 1.015 1.000 - 1.030 - * ?pH 7.0 5.0 - 8.0 - * ?Protein Negative Negative - * ?Glucose Negative Negative - * ?Ketones Negative Negative - * ?Bilirubin Negative Negative - * ?Blood Trace-intact A Negative - * ?Nitrites Negative Negative - * ?Urobilinogen 0.2 E.U./dL 0.2 - * ?Leukocytes Small A Negative - * ?UWBC 0-3 - /HPF * ?URBC 0-3 Negative - /HPF * ?Epith. 1-5 Negative - * ?BACTERIA Negative Negative - * ?CASTS Negative Negative - /LPF * ?CRYSTALS Negative Negative - * ?COMMENT N/A - ?Lab: CULTURE, URINE, ROUTINE-395 (Collection Date & Time - 06/03/2024 11:55 AM)?Lab: CULTURE, GENITAL-[id number] (Collection Date & Time - 06/03/2024 11:55 AM) * Procedure Codes:?CCFEE CC Pr ocessing [id number] SYST BP LT 130 MM [id number] DIAST BP < 80 MM [id number] BODY MASS INDEX [id number] Urinalysis, auto w/[id number] Urine culture colony [id number] Urine bacteria [id number] Wet [id number] Culture [id number] PELVIC EXAMINATION * * Sign off status: Completed true * Provider:?Roshni Rodriguez Date:?06/04/19 25 Generated for Shayna mari/Vj/eTransmitting on:?07/06/2024 10:51 AM EDT History and Physical Notes * HPI (History of Present Illness) Category Sub-Category Detail Notes Category Not es General Notes 54 yo pt prese nts with complaints of vaginal itching and discharge for 1 month. Pt states she was treated at another for BV with metrondiazole with no relief, she finished the medication regimen around 3 weeks ago. Pt states she continues to have large amount of thin yellow/ gonzalez discharge without odor and intense vaginal itching. Pt reports being monogamous and sexually active only with her fiance. Pt denies abdominal pain/ cramping, flank pain, urinary urgency/ frequency, dysuria, fever, chills, body aches, SOB, or CP. Examination Category Sub-Category Detail Notes Category Not es Genitourinary - Female EXTERNAL GENITALS: normal, no l esions VAGINA: thin yellowish disch arge CERVIX: inflamed URETHRAL MEATUS: normal General Examination GENERAL APPEARANCE: pleasant , well nourished, well developed, in no acute distress, commissioner of conciliation present in room HEART: regular rate and rhy thm LUNGS: clear to auscultatio n bilaterally ABDOMEN: bowel sounds present , soft, nontender, nondistended NEUROLOGIC: alert and oriented
--- OUTSIDE RECORDS SUMMARY | 2024-07-06 10:51 | XMS_ITS | Encounter Summary ---
Author Organization [facility] Address [address] [place] [address] Care Team Providers Care Biological Sciences Professor Name Role Phone Unavailable Primary Care Provider Unavailabl e Prior Encounters Date Type Department Care Team Description 05/25/2024 2:00 PM EDT Office Visit [facility] [address] [place] [address] [place], [facility] Encounter for dental examination and cleaning without abnormal findings (Primary Dx) 05/25/2024 1:00 PM EDT Office Visit [facility] [address] [place] [address] Soo Oliveira DMD Dental caries, unspecified (Primary Dx); Impacted teeth Last Filed Vital Signs Vital Sign Reading Time Taken Comments Blood Pressure 115/87 05/25/2024 1:21 PM EDT Pulse 79 05/25/2024 1:21 PM EDT Temperature - - Respiratory Rate - - Oxygen Saturation - - Inhaled Oxygen Concentration - - Weight - - Height - - Body Mass Index - - Plan of Treatment Not on file Procedures Procedure Name Priority Date/Time Associated Diagnosis [...] RADIOGRAPHIC IMAGE Routine 05/25/2024 1:00 PM EDT AUDIT LEAD FOUR BITEWING XRAYS Routine 1:00 PM EDT NEW PATIENT SPECIAL EXAM - ADULT Routine 05/25/2024 1:00 PM EDT NEW PATIENT INTRAORAL - PERIAPICAL FIRST RADIOGRAPHIC IMAGE Routine 05/25/2024 1:00 PM EDT AUDIT LEAD CBCT Routine 05/25/2024 1:00 PM EDT NEW [...] PFM CROWN Routine 05/25/2024 12:00 AM EDT Results * (ABNORMAL) Oral Fitness AMMP-8 manually resulted (05/25/2024 1:34 PM EDT) Active matrix metalloproteina se-8 level 31(A) 0 - 10 ng/mL Saliva Salivary gland structure / Unknown 05/25/2024 1:34 PM EDT us Soo Oliveira DMD PDS [facility] Fi nal Result Visit Diagnoses Diagnosis Start Date Encounter for dental examination and cleaning without abnormal findings 05/25/2024 Dental caries, unspecified 05/25/2024 Impacted teeth 05/25/2024
[2024-07-06 13:36] LABS: Alkaline Phosphatase 113 U/L (39-117)
== END 2024-07-06 10:16 | disposition home or self-care (01) ==
LOC: HO.HMGCLDS 10:15
PROVIDERS: PCP Internal Medicine; Visit Provider Internal Medicine Rheumatology
DX: M32.9 Systemic lupus erythematosus, unspecified (principal)
CPT/HCPCS: 36415; 84075

== ENCOUNTER 2024-07-15 09:15 | Outpatient (AMB) | payer OTHER, SELFPAY ==
--- NOTE | 2024-07-15 09:15 | MHC.OFFVIS ---
Vital Signs 07/15/24 09:19 Height 5 ft 6 in Weight 153 lb 14.122 oz BMI 24.8 BP 110/70 Blood Pressure Location Rt brachial Position Sitting Pulse 70 Pulse Source Pulse Oximeter Pulse Oximetry (%) 96 Oxygen Delivery Method Room Air Intake Visit Reasons: Follow up Intake Note: Patient is here to follow up on lupus today. Accompanied by: Spouse Allergies Penicillins [PENICILLINS] Allergy (Unknown, Verified 07/15/24 09:21) RASH HPI HPI Follow up: Details: She was diagnosed with walking PNA November-Jan 2024. She was diagnosed with COVID-19 initially presenting with 4 days of fevers. She has productive sputum with chest conjunction. PCP prescribed Flonase for postnasal drip, which has not helped. She had a chest x-ray 2 days ago, which patient reports was normal. She would not be able to walk a flight of stairs without dyspnea. Denies fevers, pleurisy, oral ulcers, sicca symptoms, new rash, urinary symptoms. She continues to have hip pain right worse than left. She also reports that when she is lying on her back she has pain from her right buttocks that radiates down her leg that lasts hours at night. She has stiffness that lasts hours in her joint. She plays pickleball for a few hours, which improves her pain and stiffness in her joints. She feels more functional when she plays pickleball. [facility] Medical History (Updated 07/15/24 @ 21:41 by Kojo Gallegos MD) Diverticulosis History of constipation History of lupus Intercostal pain Surgical History Hx of colonoscopy No pertinent past surgical history Family History Father CVD (cardiovascular disease) Cancer HTN (hypertension) Stroke Mother Alzheimer disease Sister No problems noted. Daughter No problems noted. Social History Housing: House Alcohol intake: current Alcohol intake frequency: holidays/special occasions only Patient Tobacco Use Status: Never used Tobacco e-Cigarette/Vaping Use: Never Used Second Hand Smoke Exposure: No service: No Current occupational status: employed Current occupational exposures/hazards: No Cognitive needs: No Hearing needs: No Vision needs: No Physical Exam Vital Signs: Last Vital Signs Pulse 70 07/15/24 09:19 BP 110/70 07/15/24 09:19 Pulse Ox 96 07/15/24 09:19 Oxygen Delivery Method Room Air 07/15/24 09:19 BMI result Body Mass Index 24.8 Const Other: General: Comfortable CVS: RRR Respiratory: clear to auscultation bilaterally. Good respiratory effort Skin: No lesions seen MSK: No tender joints. No synovitis. Normal range of motion of upper extremities and lower extremities. Tender right trochanteric bursa. Negative straight leg raising test. No tenderness of lumbar spinous process or paraspinal muscles. No SI joint tenderness. Normal lumbar flexion. Assessment & Plan Assessment & Plan (1) SLE (systemic lupus erythematosus): Comment: Controlled on hydroxychloroquine. She had atypical pneumonia diagnosed in November with a prolonged course lasting 3 months and COVID-19 a month ago with long COVID (fatigue, exertional dyspnea and productive cough). If she has another infection, she will need to to be evaluated by an rn telephone triage for primary immunodeficiency such as CVID. Rheumatology history: CLAUDIO 1:80. Diagnosed with recurrent fevers, leukopenia and thrombocytopenia (124K), resolved with HCQ. Code(s): M32.9 - Systemic lupus erythematosus, unspecified Category: Medical Plan: Continue hydroxychloroquine 200 mg daily. She has an upcoming eye exam for hydroxychloroquine surveillance Labs to evaluate for disease and drug monitoring ordered Return to clinic in 3 months. (2) Lumbar radiculopathy, right: Comment: I am concerned that she has lumbar spine pathology (facet arthropathy, DDD, spinal canal stenosis) contributing to nerve impingement Code(s): M54.16 - Radiculopathy, lumbar region Category: Medical Plan: Lumbar spine x-ray ordered PT ordered If symptoms do not improve or worsen, I will order MRI lumbar spine (3) Trochanteric bursitis, right hip: Comment: Chronic Code(s): M70.61 - Trochanteric bursitis, right hip Category: Medical Plan: PT ordered Can consider cortisone injection in the future if symptoms progress Orders: Orders PT Evaluation and Treatment Today M54.16 - Radiculopathy, lumbar region, M70.61 - Trochanteric bursitis, right hip Complete Blood Count Man Dif Today M32.9 - Systemic lupus erythematosus, unspecified Alanine Aminotransferase Today M32.9 - Systemic lupus erythematosus, unspecified C Reactive Protein Today M32.9 - Systemic lupus erythematosus, unspecified Erythrocyte Sedimentation Rate Today M32.9 - Systemic lupus erythematosus, unspecified Anti DNA DS Antibody Today M32.9 - Systemic lupus erythematosus, unspecified Complement C3 Today M32.9 - Systemic lupus erythematosus, unspecified XR lumbar spine 2-3V Today M54.16 - Radiculopathy, lumbar region Aspartate Amino Transferase Today M32.9 - Systemic lupus erythematosus, unspecified Creatinine Today M32.9 - Systemic lupus erythematosus, unspecified UA w Microscopic Today M32.9 - Systemic lupus erythematosus, unspecified Protein Creatinine Ratio, Ur Today M32.9 - Systemic lupus erythematosus, unspecified Complement C4 Today M32.9 - Systemic lupus erythematosus, unspecified Medications: Refilled hydroxychloroquine 200 mg PO DAILY 90 days 90 tabs 1RF Coding Level of Care Code Est Pt Level 4 (06665) Complex EM visit Add On G2211 Diagnoses SLE (systemic lupus erythematosus) M32.9 Lumbar radiculopathy, right M54.16 Trochanteric bursitis, right hip M70.61
[2024-07-15 09:19] VITALS: BP 110/70; PULSE 70; O2SAT 96; BMI 24.8
--- OUTSIDE RECORDS SUMMARY | 2024-07-15 09:53 | XMS_ITS | Patient Health Record ---
Author Organization [facility] Address [address] [place] [address] Care Team Providers Care Organ Pipe Voicer Name Role Phone AILIN BARCLAY Primary Care Provider [phone] KATHRYN RODRIGUEZGEORGIA Rowe [phone] Allergies Allergen (clinical drug ingredient) Drug/Non Drug Allergy documented on EMR Reaction Allergy Type Onset Date Status Penicillin Unknown Drug Allergy Active Results Component Value Reference Range Notes Full UA w/micro Reviewed date:06/03/2024 06:12:24 PM Interpretation: Performing Lab:1, [facility], [address], [address], [facility], Phone - [phone] Notes/Report: CULTURE, URINE, ROUTINE-395 Reviewed date:06/08/2024 04:26:32 PM Interpretation: Performing Lab:[place] [facility]-[id number], [id number]- [address] Notes/Report: 0 CULTURE, URINE, ROUTINE SEE NOTE CULTURE, URINE, ROUTINE Micro Number: [id number] Test Status: Final Specimen Source: Clean catch Specimen Quality: Adequate Result: 10,000-49,000 CFU/mL of Group A Streptococcus isolated CULTURE, GENITAL-[id number] Reviewed date:06/08/2024 04:26:41 PM Interpretation: Performing Lab:[place] [facility]-[id number], [id number]- [address] Notes/Report: 0 CULTURE, GENITAL SEE NOTE CULTURE, GENITAL Micro Number: [id number] Test Status: Final Specimen Source: Vaginal Specimen Quality: Adequate Result: Heavy growth of Group A Streptococcus isolated Beta-hemolytic streptococci are predictably susceptible to Penicillin and other beta-lactams. Susceptibility testing not routinely performed. Please contact the laboratory within 3 days if susceptibility testing is desired. Wet Prep Reviewed date:06/03/2024 06:12:16 PM Interpretation: Performing Lab:1, [facility], [address], [facility], Phone - [phone] Notes/Report: Reason For Referral No Information Medications [...] /min 06/03/2024 Temperature 97.3 degrees Fahrenheit 06/03/2024 Oximetry 97 % 06/03/2024 Blood pressure diastolic 70 mm Hg 06/03/2024 BMI Percentile 25.09 kg/m2 06/03/2024 Height 65 in 06/03/2024 Blood pressure systolic 110 mm Hg 06/03/2024 Weight 150.8 lbs 06/03/2024 Procedures Procedure Date Ordered Date Performed Result Body Sit e PELVIC EXAMINATION 06/03/2024 N/A Encounters Encounter Location Date Provider Diagnosis [facility] [address] [place] [address] 06/03/2024 SUNNY RODRIGUEZ Vaginal discharge N89.8 and Vaginal itching N89.8 [facility] [address] [place] [address] 06/03/2024 SUNNY ERACE [facility] [address] [place] [address] 06/08/2024 SUNNY RODRIGUEZ Group A streptococca l [...]
== END 2024-07-15 10:25 | disposition home or self-care (01) ==
PROVIDERS: PCP Internal Medicine; Visit Provider Internal Medicine Rheumatology
DX: M32.9 Systemic lupus erythematosus, unspecified (principal); M54.16 Radiculopathy, lumbar region; M70.61 Trochanteric bursitis, right hip
CPT/HCPCS: 99214

== ENCOUNTER → 2024-07-15 09:15 | Outpatient (BNVA) | payer OTHER, SELFPAY | PROVIDERS: PCP Internal Medicine; Visit Provider Internal Medicine Rheumatology ==

== ENCOUNTER 2024-07-16 12:08 | Outpatient (REF) | payer OTHER, SELFPAY ==
--- NOTE | ~2024-07-16 | XR_ITS ---
EXAMINATION: XR LUMBOSACRAL SPINE CLINICAL INFORMATION: M54.16 - Radiculopathy, lumbar region COMPARISON: None available. TECHNIQUE: Three views of the lumbosacral spine. FINDINGS: Mild levoconvex curvature lower lumbar spine. Facet joint hypertrophy at L5-S1. No acute cortical disruption. No gross listhesis. Spina bifida occulta S1, congenital. No lytic or blastic lesions. XR/XR lumbar spine 2-3V IMPRESSION: Mild levoconvex scoliosis and spondylosis L5-S1. Electronically signed by: Alexis Hernandez MD 07/16/2024 02:12 PM EDT
--- OUTSIDE RECORDS SUMMARY | 2024-07-16 12:10 | XMS_ITS | Patient Health Record ---
Author Organization [facility] Address [address] [place] [address] Care Team Providers Care Count Team Member Name Role Phone BARCLAYAILIN Primary Care Provider [phone] SUNNY RODRIGUEZ Jae [phone] Allergies Allergen (clinical drug ingredient) Drug/Non Drug Allergy documented on EMR Reaction Allergy Type Onset Date Status Penicillin Unknown Drug Allergy Active Results Component Value Reference Range Notes Wet Prep Reviewed date:06/03/2024 06:12:16 PM Interpretation: Performing Lab:1, [facility], [address], [address], [facility], Phone - [phone] Notes/Report: CULTURE, GENITAL-[id number] Reviewed date:06/08/2024 04:26:41 PM Interpretation: Performing Lab:[place] [id number], [id number]- [address] Notes/Report: 0 CULTURE, GENITAL SEE NOTE CULTURE, GENITAL Micro Number: [id number] Test Status: Final Specimen Source: Vaginal Specimen Quality: Adequate Result: Heavy growth of Group A Streptococcus isolated Beta-hemolytic streptococci are predictably susceptible to Penicillin and other beta-lactams. Susceptibility testing not routinely performed. Please contact the laboratory within 3 days if susceptibility testing is desired. CULTURE, URINE, ROUTINE-395 Reviewed date:06/08/2024 04:26:32 PM Interpretation: Performing Lab:[place] [id number], [id number]- [address] Notes/Report: 0 CULTURE, URINE, ROUTINE SEE NOTE CULTURE, URINE, ROUTINE Micro Number: [id number] Test Status: Final Specimen Source: Clean catch Specimen Quality: Adequate Result: 10,000-49,000 CFU/mL of Group A Streptococcus isolated Full UA w/micro Reviewed date:06/03/2024 06:12:24 PM Interpretation: Performing Lab:1, [facility], [address], [address], [facility], Phone - [phone] Notes/Report: Reason For Referral No Information Medications [...] N/A Encounters Encounter Location Date Provider Diagnosis [facility] [address] [place] [address] 06/03/2024 SUNNY ERACE Vaginal discharge N89.8 and Vaginal itching N89.8 [facility] [address] [place] [address] 06/03/2024 SUNNY ERACE [facility] [address] [place] [address] 06/08/2024 SUNNY RODRIGUEZ Group A streptococca l [...]
== END 2024-07-16 12:09 | disposition home or self-care (01) ==
LOC: HO.HMGCX 12:08
PROVIDERS: PCP Internal Medicine; Visit Provider Internal Medicine Rheumatology
DX: M54.16 Radiculopathy, lumbar region (principal)
CPT/HCPCS: 72100

== ENCOUNTER → 2024-07-16 12:15 | Outpatient (BNV) | payer OTHER, SELFPAY | PROVIDERS: PCP Internal Medicine; Visit Provider Radiology Diagnostic Radiology | DX: M54.16 Radiculopathy, lumbar region (principal) | CPT/HCPCS: 72100 ==

== ENCOUNTER 2024-07-21 12:03 | Outpatient (REF) | payer OTHER, SELFPAY ==
--- OUTSIDE RECORDS SUMMARY | 2024-07-21 13:31 | XMS_ITS | Patient Health Record ---
Author Organization [facility] Address [address] [place] [address] Care Team Providers Care Ore Fielder Name Role Phone AILIN BARCLAY Primary Care Provider KATHRYN RODRIGUEZGEORGIA Rowe [phone] Allergies Allergen (clinical drug ingredient) Drug/Non Drug Allergy documented on EMR Reaction Allergy Type Onset Date Status Penicillin Unknown Drug Allergy Active Results Component Value Reference Range Notes Full UA w/micro Reviewed date:06/03/2024 06:12:24 PM Interpretation: Performing Lab:1, [facility], [address], [address], [facility], Phone - [phone] Notes/Report: CULTURE, URINE, ROUTINE-395 Reviewed date:06/08/2024 04:26:32 PM Interpretation: Performing Lab:[place] [id number], [id number]- [address] Notes/Report: 0 CULTURE, URINE, ROUTINE SEE NOTE CULTURE, URINE, ROUTINE Micro Number: [id number] Test Status: Final Specimen Source: Clean catch Specimen Quality: Adequate Result: 10,000-49,000 CFU/mL of Group A Streptococcus isolated CULTURE, GENITAL-[id number] Reviewed date:06/08/2024 04:26:41 PM Interpretation: Performing Lab:[place] [id number], [id number]- [address] Notes/Report: 0 CULTURE, GENITAL SEE NOTE CULTURE, GENITAL Micro Number: [id number] Test Status: Final Specimen Source: Vaginal Specimen Quality: Adequate Result: Heavy growth of Group A Streptococcus isolated Beta-hemolytic streptococci are predictably susceptible to Penicillin and other beta-lactams. Susceptibility testing not routinely performed. Please contact the laboratory within 3 days if susceptibility testing is desired. Wet Prep Reviewed date:06/03/2024 06:12:16 PM Interpretation: Performing Lab:1, [facility], [address], [address], [facility], Phone - [phone] Notes/Report: Reason For Referral No Information Medications [...] N/A Encounters Encounter Location Date Provider Diagnosis [facility] [address] [place] [address] 06/03/2024 SUNNY RODRIGUEZ Vaginal discharge N89.8 and Vaginal itching N89.8 [facility] [address] [place] [address] 06/03/2024 SUNNY ERACE [facility] [address] [place] [address] 06/08/2024 SUNNY RODRIGUEZ Group A streptococca l [...]
[2024-07-21 13:56] LABS: Baso%MD 0.7 %; Eos%MD 2.5 %; Hematocrit 38.8 % (37.0-47.0); Hemoglobin 13.6 g/dl (12.0-16.0); IG%MD 0.2 %; Mean Corpuscular HGB Conc 35.1 g/dl (31.0-35.0); Mean Corpuscular Hemoglobin 31.7 pg (27.0-33.0); Mean Corpuscular Volume 90.4 fL (80.0-98.0); Mean Platelet Volume 11.8 fL (9.4-12.3); Mono%MD 7.1 %; Neut%MD 53.5 %; Platelet Count 183 X10*3/uL (160-400); Red Blood Count 4.29 X10*6/uL (4.20-5.50); Red Cell Distribution Width 13.2 % (11.0-16.0); White Blood Count 4.4 X10*3/uL (4.8-10.8)
[2024-07-21 14:30] LABS: Alanine Aminotransferase 23 U/L (0-31); Aspartate Amino Transferase 26 U/L (5-31); C Reactive Protein < 0.10 mg/dL (< or = 0.50); Estimated Glomerular Filt Rate > 60
[2024-07-21 14:34] LABS: Atypical Lymphs Percent Manual 1 % (0-6); Basophils Percent Manual 1 % (0-2); Eosinophils Absolute Manual 0.2 X10*3/uL (0.0-0.4); Eosinophils Percent Manual 4 % (0-4); Lymphocytes Absolute Manual 1.5 X10*3/uL (1.2-4.9); Lymphocytes Percent Manual 34 % (20-40); Monocytes Absolute Manual 0.2 X10*3/uL (0.1-1.2); Monocytes Percent Manual 4 % (2-11); Neutrophils Percent Manual 56 % (45-73)
[2024-07-21 14:35] LABS: Band Neutrophils Percent 0 % (3-5); Neutrophils Absolute Manual 2.5 X10*3/uL (2.0-8.3)
[2024-07-21 14:36] LABS: Burr Cells 1+ (0-2) /OIF; Platelet Estimate NORMAL (NORMAL); Platelet Morphology Comment NORMAL; RBC Morphology NOTED; Tear Drop Cells 1+ (0-2) /OIF
[2024-07-21 14:37] LABS: Erythrocyte Sedimentation Rate 7 MM/HR (0-20)
[2024-07-21 17:11] LABS: Appearance Urine Clear; Color Urine Yellow; Glucose Urine UA Negative (Negative); Leukocyte Esterase Urine Trace (Negative); Nitrite Urine Negative (Negative); PH 5.5 (5.0-9.0); Specific Gravity - Urine <= 1.005 (1.005-1.025); UMIC TRIGGER UA YES; Urine Blood Negative (Negative); Urine Ketones Negative (Negative); Urine Protein Negative (Neg-Trace)
[2024-07-21 17:14] LABS: Bacteria Urine None Seen (None Seen); Hyaline Casts Urine 0-2 /LPF (0-2); RBC Urine 0-2 /HPF (0-2); WBC Urine 0-5 /HPF (0-5)
[2024-07-21 17:53] LABS: Creatinine Urine 22.17 mg/dL; Total Protein Urine Random < 7 mg/dL (<12)
[2024-07-22 17:32] LABS: Complement C3 137 mg/dL (83-193)
[2024-07-22 20:18] LABS: Anti DNA DS Antibody 3 IU/mL
== END 2024-07-21 12:04 | disposition home or self-care (01) ==
LOC: HO.HMGCLDS 12:03
PROVIDERS: PCP Internal Medicine; Visit Provider Internal Medicine Rheumatology
DX: M32.9 Systemic lupus erythematosus, unspecified (principal)
CPT/HCPCS: 36415; 81001; 82565; 82570; 84156; 84450; 84460; 85007; 85027; 85652; 86140; 86160; 86225

== ENCOUNTER 2024-10-15 08:35 | Outpatient (REF) | payer OTHER, SELFPAY ==
[2024-10-15 13:24] LABS: MANUAL DIFF FLAG NO
[2024-10-15 13:39] LABS: Appearance Urine Clear; Glucose Urine UA Negative (Negative); PH 8.5 (5.0-9.0); Specific Gravity - Urine <= 1.005 (1.005-1.025)
[2024-10-15 13:41] LABS: Hematocrit 39.4 % (37.0-47.0); Hemoglobin 13.3 g/dl (12.0-16.0); Imm Gran Abs Auto 0.02 X10*3/uL (0.00-0.03); Imm Gran Pct Auto 0.4 % (0.0-0.4); Lymphocytes Absolute Auto 1.3 X10*3/uL (1.2-4.9); Mean Corpuscular HGB Conc 33.8 g/dl (31.0-35.0); Mean Corpuscular Hemoglobin 31.1 pg (27.0-33.0); Mean Corpuscular Volume 92.1 fL (80.0-98.0); NRBC Abs Auto 0.000 X10*3/uL (0.0-0.012); NRBC Pct Auto 0.0 /100WBC (0.0-0.2); Platelet Count 146 X10*3/uL (160-400); Red Blood Count 4.28 X10*6/uL (4.20-5.50); White Blood Count 4.6 X10*3/uL (4.8-10.8)
[2024-10-15 14:00] LABS: Alanine Aminotransferase 23 U/L (0-31); Aspartate Amino Transferase 29 U/L (5-31); Estimated Glomerular Filt Rate > 60
[2024-10-15 14:11] LABS: Total Protein Urine Random < 7 mg/dL (<12)
== END 2024-10-15 08:36 | disposition home or self-care (01) ==
LOC: HO.HKASLDS 08:35
PROVIDERS: PCP Internal Medicine; Visit Provider Internal Medicine Rheumatology
DX: M32.9 Systemic lupus erythematosus, unspecified (principal); M70.61 Trochanteric bursitis, right hip; Z51.81 Encounter for therapeutic drug level monitoring; Z01.84 Encounter for antibody response examination; Z79.899 Other long term (current) drug therapy
CPT/HCPCS: 36415; 81001; 82565; 82570; 84156; 84450; 84460; 85025; 85652; 86140; 86160; 86225

== ENCOUNTER 2024-10-15 08:35 | Outpatient (AMB) | payer OTHER, SELFPAY ==
--- NOTE | 2024-10-15 08:35 | A.OFFVIS_ITS ---
Vital Signs 10/15/24 08:36 Height 5 ft 6 in Weight 148 lb 9.465 oz BMI 24.0 BP 110/80 Blood Pressure Location Lt brachial Position Sitting Pulse 61 Pulse Source Pulse Oximeter Pulse Oximetry (%) 91 L Oxygen Delivery Method Room Air Intake Visit Reasons: 3 Months Intake Note: Patient is here to follow up on lupus today. Accompanied by: Self / Same As Patient Allergies Penicillins (PENICILLINS) Allergy (Unknown, Verified 10/15/24 08:36) RASH Medication List - Last Reconciled 10/15/24 by Kojo Gallegos MD celecoxib (Celebrex) 200 mg PO DAILY creatine monohydrate ea PO estradiol moshe-testosteron enan 8-180 mg/mL mL IM hydroxychloroquine 200 mg PO DAILY 90 days polyethylene glycol 3350 (Miralax) 17 grams PO DAILY prasterone (DHEA) 100 mg PO DAILY progesterone micronized 200 mg PO BEDTIME HPI HPI 3 Months: Details: She continues to have pain in right hip radiating down leg. She saw [facility] and pain management who has impression was at the mild arthritis in her hip is contributing to her pain and not her back. She also had an MRI of her lumbar spine.. She had intra-articular hip injection lasting 2 days. She rested for 24 hours but then went back to her regular routine with pickleball. SHe had PT cierra who told her that she was doing everything already. She takes ibuprofen 400mg prior to playing pickleball. She plays pickleball 6 days a week and 3 hours a session. She is in 2 leagues. No fevers, pleurisy, shortness of breath, rash, photosensitivity, oral ulcers or genital ulcers, hair loss, joint swelling, urinary symptoms Pain in knees and ankles that she relates to pickleball. [facility] Medical History Diverticulosis History of constipation History of lupus Intercostal pain Surgical History Hx of colonoscopy No pertinent past surgical history Family History Father CVD (cardiovascular disease) Cancer HTN (hypertension) Stroke Mother Alzheimer disease Sister No problems noted. Daughter No problems noted. Social History (Reviewed 10/15/24 @ 08:36 by Shahrzad Carnes [facility] House Alcohol intake: current Alcohol intake frequency: holidays/special occasions only Patient Tobacco Use Status: Never used Tobacco e-Cigarette/Vaping Use: Never Used Second Hand Smoke Exposure: No service: No Current occupational status: employed Current occupational exposures/hazards: No Cognitive needs: No Hearing needs: No Vision needs: No Physical Exam Vital Signs: Last Vital Signs Pulse 61 10/15/24 08:36 BP 110/80 10/15/24 08:36 Pulse Ox 91 L 10/15/24 08:36 Oxygen Delivery Method Room Air 10/15/24 08:36 BMI result Body Mass Index 24.0 Const Other: General: Comfortable CVS: RRR Respiratory: clear to auscultation bilaterally. Good respiratory effort Skin: No lesions seen MSK: No tender joints. Squaring of CMCs. No synovitis. Normal range of motion of upper extremities and lower extremities. No trochanteric bursa tenderness found. Results Reviewed Results Reviewed: Ordering Physician: Kojo Gallegos MD Date of Service: 07/16/24 Procedure(s): XR lumbar spine 2-3V Accession Number(s): [id number] cc: SHAWN OG MD; Kojo Gallegos MD~ EXAMINATION: XR LUMBOSACRAL SPINE CLINICAL INFORMATION: M54.16 - Radiculopathy, lumbar region COMPARISON: None available. TECHNIQUE: Three views of the lumbosacral spine. FINDINGS: Mild levoconvex curvature lower lumbar spine. Facet joint hypertrophy at L5-S1. No acute cortical disruption. No gross listhesis. Spina bifida occulta S1, congenital. No lytic or blastic lesions. XR/XR lumbar spine 2-3V IMPRESSION: Mild levoconvex scoliosis and spondylosis L5-S1. Assessment & Plan Assessment & Plan (1) SLE (systemic lupus erythematosus): Comment: Controlled on hydroxychloroquine. Chronic leukopenia is stable. She had questions about NAD+ injections that she is taking. There is clinical evidence to support benefit in regenerative medicine. At this time I have not found any contraindication for using NAD+ with SLE. Rheumatology history: CLAUDIO 1:80. Diagnosed with recurrent fevers, leukopenia and thrombocytopenia (124K), resolved with HCQ. Code(s): M32.9 - Systemic lupus erythematosus, unspecified Category: Medical Plan: Continue hydroxychloroquine 200 mg daily. Requesting updated eye report after 08/11/2024 visit as patient was supposed to have visual field testing. Labs to evaluate for disease and drug monitoring ordered She will follow up with pain management for hip pain. Consider another intra- articular cortisone injection with at least 1 week of no strenuous activity including playing pickleball. Patient agrees with plan. Return to clinic in 3 months. (2) Trochanteric bursitis, right hip: Comment: Chronic. Pain is controlled with home exercise program Code(s): M70.61 - Trochanteric bursitis, right hip Category: Medical Plan: Monitor clinically Orders: Orders Complete Blood Count Auto Diff Today M32.9 - Systemic lupus erythematosus, unspecified Complement C3 Today M32.9 - Systemic lupus erythematosus, unspecified Aspartate Amino Transferase Today M32.9 - Systemic lupus erythematosus, unspecified Erythrocyte Sedimentation Rate Today M32.9 - Systemic lupus erythematosus, unspecified Protein Creatinine Ratio, Ur Today M32.9 - Systemic lupus erythematosus, unspecified Alanine Aminotransferase Today M32.9 - Systemic lupus erythematosus, unspecified Complement C4 Today M32.9 - Systemic lupus erythematosus, unspecified Creatinine Today M32.9 - Systemic lupus erythematosus, unspecified UA ClnCatch+Micro w/rflx Cult Today M32.9 - Systemic lupus erythematosus, unspecified C Reactive Protein Today M32.9 - Systemic lupus erythematosus, unspecified Anti DNA DS Antibody Today M32.9 - Systemic lupus erythematosus, unspecified Coding Level of Care Code Est Pt Level 4 (68735) Complex EM visit Add On G2211 Diagnoses SLE (systemic lupus erythematosus) M32.9 Trochanteric bursitis, right hip M70.61
[2024-10-15 08:36] VITALS: BP 110/80; PULSE 61; O2SAT 91; BMI 24.0
--- OUTSIDE RECORDS SUMMARY | 2024-10-15 09:15 | XMS_ITS | Clinical Summary ---
Author Organization [facility] Address [address] [place] [address] Care Team Providers Care Director Of Financial Reporting Name Role Phone Unavailable Primary Care Provider Unavailabl e Allergies Active Allergy Reactions Criticality Noted Date Comments Penicillins Swelling High 03/22/2024 Sulbactam And Other Inhibitor Analogues Hives 05/25/2024 Medications celecoxib (CeleBREX) 100 mg capsule Take 100 mg by mouth 1 (one) time each day. Active hydroxychloroqui ne (PLAQUENIL) 200 mg tablet Take by mouth. Active Active Problems No known active problems Social History Tobacco Use Types Packs/Day Years [...] 05/27/2027 05/25/2024 Dental X-Ray: Panoramic 05/27/2027 05/25/2024 Procedures Procedure Name Priority Date/Time Associated Diagnosis Comments PROPHYLAXIS - ADULT Routine 05/25/2024 2:00 PM EDT Encounter for dental examination and cleaning without abnormal findings BRAND MARKETING COORDINATOR CBCT Routine 05/25/2024 1:00 PM EDT ORALFITNESSCHECK INITIAL SCREEN Routine 05/25/2024 1:00 PM EDT NEW PATIENT SPECIAL EXAM - ADULT Routine 05/25/2024 1:00 PM EDT from Last 3 Months or Most Recently Relevant to Health Maintenance
--- OUTSIDE RECORDS SUMMARY | 2024-10-15 09:15 | XMS_ITS | Encounter Summary ---
Author Organization [facility] Address [address] [place] [address] Care Team Providers Care Hardware Installation Coordinator Name Role Phone Unavailable Primary Care Provider Unavailabl e Prior Encounters Date Type Department Care Team Description 05/25/2024 2:00 PM EDT Office Visit [facility], [address] [place] [address] [place], [facility] Encounter for dental examination and cleaning without abnormal findings (Primary Dx) 05/25/2024 1:00 PM EDT Office Visit [facility] [address], [address] [place] [address] Soo Oliveira DMD Dental caries, [...] RADIOGRAPHIC IMAGE Routine 05/25/2024 1:00 PM EDT CAUSTICISER FOUR BITEWING XRAYS Routine 1:00 PM EDT NEW PATIENT SPECIAL EXAM - ADULT Routine 05/25/2024 1:00 PM EDT NEW PATIENT INTRAORAL - PERIAPICAL FIRST RADIOGRAPHIC IMAGE Routine 05/25/2024 1:00 PM EDT CAUSTICISER CBCT Routine 05/25/2024 1:00 PM EDT NEW [...]
--- OUTSIDE RECORDS SUMMARY | 2024-10-15 09:15 | XMS_ITS | Patient Health Record ---
Author Organization [facility] Address [address] [place] [address] Care Team Providers Care Copy Holder Name Role Phone HONORIO BARCLAYORY Primary Care Provider [phone] KATHRYN RODRIGUEZSCA Jae [phone] Allergies Allergen (clinical drug ingredient) Drug/Non Drug Allergy documented on EMR Reaction Allergy Type Onset Date Status Penicillin Unknown Drug Allergy Active Results Component Value Reference Range Flag Notes Full UA w/micro Reviewed date:06/03/2024 06:12:24 PM Interpretation: Performing Lab:1, [facility], [address], [facility], Phone - [phone] Notes/Report: CULTURE, URINE, ROUTINE-395 Reviewed date:06/08/2024 04:26:32 PM Interpretation: Performing Lab:[place] [id number], [id number] [address] Notes/Report: 0 CULTURE, URINE, ROUTINE SEE NOTE A CULTURE, URINE, ROUTINE Micro Number: [id number] Test Status: Final Specimen Source: Clean catch Specimen Quality: Adequate Result: 10,000-49,000 CFU/mL of Group A Streptococcus isolated CULTURE, GENITAL-[id number] Reviewed date:06/08/2024 04:26:41 PM Interpretation: Performing Lab:[place] [id number], [id number] [address] Notes/Report: 0 CULTURE, GENITAL SEE NOTE A CULTURE, GENITAL Micro Number: [id number] Test Status: Final Specimen Source: Vaginal Specimen Quality: Adequate Result: Heavy growth of Group A Streptococcus isolated Beta-hemolytic streptococci are predictably susceptible to Penicillin and other beta-lactams. Susceptibility testing not routinely performed. Please contact the laboratory within 3 days if susceptibility testing is desired. Wet Prep Reviewed date:06/03/2024 06:12:16 PM Interpretation: Performing Lab:1, [facility], [address], [address], [facility], Phone - [phone] Notes/Report: Reason For Referral No Information Medications Medication SIG (Take, Route, Frequency, Duration) Notes Start Date End Date Status DHEA Active Testosterone Active Amoxicillin-Pot Clavulanate 875-125 MG Tablet 1 tablet Orally every 12 hrs; Duration: 7 days *provider aware of mild PCN allergy Benefits outweigh risk 06/08/2024 Active Progesterone Active metroNIDAZOLE 0.75 % Gel 1 applicatorful at bedtime Vaginal once a day; Duration: 5 days 06/03/2024 Active Hydroxychloroquine Sulfate 200 MG Tablet as directed Orally Active Social History Tobacco Use: Social History Observation Description Date Details (start date - stop date) Never Smoker NA - NA Social History Patient Questionnaire: Social Info Question Answer Notes Other Habits: Do you drink alcohol? Yes on a rare occasion Have you used drugs other th an those for medical reasons for the past 12 months? No Tobacco Use: Social Info Question Answer Notes Tobacco Control (Standard) Tobacco use: Nonsmoker Vital Signs Heart Rate [...] N/A Encounters Encounter Location Date Provider Diagnosis [facility] [address] [place] [address] 06/03/2024 SUNNY RODRIGUEZ Vaginal discharge N89.8 and Vaginal itching N89.8 [facility] [address] [place] [address] 06/03/2024 SUNNY RODRIGUEZ [facility] [address] [place] [address] 06/08/2024 SUNNY RODRIGUEZ Group A streptococca l [...]
--- OUTSIDE RECORDS SUMMARY | 2024-10-15 09:15 | XMS_ITS | Clinical Summary ---
Author Organization [facility] Address [address] [place] [address] Care Team Providers Care Molding Manager Name Role Phone Unavailable Primary Care Provider [...]
== END 2024-10-15 09:15 | disposition home or self-care (01) ==
LOC: HO.RHES 08:35
PROVIDERS: PCP Internal Medicine; Visit Provider Internal Medicine Rheumatology
DX: M32.9 Systemic lupus erythematosus, unspecified (principal); M70.61 Trochanteric bursitis, right hip
CPT/HCPCS: 99214; G2211

== ENCOUNTER 2025-01-20 13:56 | Outpatient (REF) | payer OTHER, SELFPAY ==
--- OUTSIDE RECORDS SUMMARY | 2025-01-16 23:59 | XMS_ITS | Continuity of Care Document ---
Author Organization [facility] ter Address [address] [place] [address]- Support Name Relationship Address Phone LONDRAVILLE, LINA Personal Relationship Unknown Unavailable LONDRAVILLE, LINA Personal Relationship Unknown Unavailable LONDRAVILLE, LINA Personal Relationship Unknown Unavailable LONDRAVILLE, LINA Personal Relationship Unknown Unavailable LONDRAVILLE, LINA Personal Relationship Unknown Unavailable LONDRAVILLE, LINA Personal Relationship Unknown Unavailable SENECAL, ERICA domestic partner Unknown Unavailable LONDRAVILLE, LINA Personal Relationship Unknown Unavailable LONDRAVILLE, LINA Personal Relationship Unknown Unavailable LONDRAVILLE, LINA Personal Relationship Unknown Unavailable LONDRAVILLE, LINA Personal Relationship Unknown Unavailable LONDRAVILLE, LINA Personal Relationship Unknown Unavailable LONDRAVILLE, LINA Personal Relationship Unknown Unavailable LONDRAVILLE, LINA Personal Relationship Unknown Unavailable LONDRAVILLE, LIAM spouse Unknown Unavailabl e LONDRAVILLE, LINA Personal Relationship Unknown Unavailable LONDRAVILLE, LINA Personal Relationship Unknown Unavailable LONDRAVILLE, LINA Personal Relationship Unknown Unavailable LONDRAVILLE, LINA Personal Relationship Unknown Unavailable LONDRAVILLE, LINA Personal Relationship Unknown Unavailable LONDRAVILLE, LINA Personal Relationship Unknown Unavailable LONDRAVILLE, LINA Personal Relationship Unknown Unavailable LONDRAVILLE, LINA Personal Relationship Unknown Unavailable Care Team Providers Care Compliance Attorney Name Role Phone Ariana BARRETT, Joel Kemp Primary Care Physician [phone] Encounter [facility] ACCT R [id number] Date(s): 11/17/24 - 01/16/[address] [address]- Attending Physician: Gabriel Case MD Admitting Physician: Gabriel Case MD Referring Physician: Gabriel Case MD Encounter Type: Pre-Outpt Allergies, Adverse Reactions, Alerts Substance Criticality Severity Reaction Reaction Severity Status penicillins Active Immunizations Given and Recorded Vaccine Date Status Refusal Reason influenza virus vaccine, inactivated 12/02/23 Vipul rded influenza virus vaccine, inactivated 01/09/23 Vipul rded influenza virus vaccine, inactivated 11/24/21 Vipul rded influenza virus vaccine, inactivated 12/03/20 Vipul rded influenza virus vaccine, inactivated 12/25/19 Vipul rded influenza virus vaccine, inactivated 12/15/18 Vipul rded SARS-CoV-2 (COVID-19) mRNA BNT-162b2 vac 01/27/21 Recorded SARS-CoV-2 (COVID-19) mRNA-1273 vaccine 07/11/20 R ecorded SARS-CoV-2 (COVID-19) mRNA-1273 vaccine 06/11/20 R ecorded SARS-CoV-2 (COVID-19) mRNA-1273 vaccine 05/13/20 R ecorded Medications apixaban 2.5 mg oral tablet 1 tablet = 2.5 mg, By Mouth, 2 times a day, # 60 tablet, 0 Refills, Maintenance, 01/01/25 1:08:00 PM EST, Tablet, [facility], Partial fill upon patient request if the prescription is for a schedule II opioid drug., 167.64, cm, 01/01/25 6:23:00 EST, Height, 65.7, kg, 01/01/25 6:03:00 EST, Dry Weight Start Date: 01/01/25 Status: Ordered Medication Dispense Status: Completed Quantity: 60.0 Unit: tablet Total Allowed Fills: 1 Fills Dispensed: 0 CeleBREX 200 mg oral capsule 1 capsule = 200 mg, By Mouth, Daily, 0 Refills, Maintenance, 07/24/23 10:02:00 AM EDT, Partial fill upon patient request if the prescription is for a schedule II opioid drug. Start Date: 07/24/23 Status: Ordered Medication Dispense Status: Completed Total Allowed Fills: 1 Fills Dispensed: 0 docusate sodium 100 mg oral capsule 100 mg, 1, capsule, By Mouth, 2 times a day, # 60 capsule, Refills 0, Tot. Refills 0, Maintenance, 01/01/25 1:08:00 PM EST, Route to Pharmacy Electronically, [facility], Partial fill upon patient request if the prescription is for a schedule II opioid drug., 167.64, cm, 01/01/25 6:23:00 EST, Height, 65.7, kg, 01/01/25 6:03:00 EST, Dry Weight Start Date: 01/01/25 Status: Ordered Medication Dispense Status: Completed Quantity: 60.0 Unit: capsule Total Allowed Fills: 1 Fills Dispensed: 0 hydroxychloroquine 200 mg oral tablet 200 mg, 1, tablet, By Mouth, Daily, Refills 0, Maintenance, 07/24/23 10:02:00 AM EDT, Partial fill upon patient request if the prescription is for a schedule II opioid drug. Start Date: 07/24/23 Status: Ordered Medication Dispense Status: Completed Total Allowed Fills: 1 Fills Dispensed: 0 MiraLax Powder 1 pack/packet = 17 Gm, By Mouth, Daily, PRN Constipation, 0 Refills, Maintenance, 01/01/25 1:11:00 PM EST, Powder, Partial fill upon patient request if the prescription is for a schedule II opioid drug. Start Date: 01/01/25 Status: Ordered Medication Dispense Status: Completed Total Allowed Fills: 1 Fills Dispensed: 0 pantoprazole 40 mg oral delayed release tablet = 40 mg, By Mouth, Daily, # 30 tablet, 0 Refills, Maintenance, 01/01/25 1:08:00 PM EST, EC Tablet, 167.64, cm, 01/01/25 6:23:00 EST, Height, 65.7, kg, 01/01/25 6:03:00 EST, Dry Weight Start Date: 01/01/25 Stop Date: 01/31/25 Status: Ordered Medication Dispense Status: Completed Quantity: 30.0 Unit: tablet Total Allowed Fills: 1 Fills Dispensed: 0 progesterone 200 mg oral capsule = 200 mg, By Mouth, Daily, 0 Refills, Maintenance, 08/14/24 1:00:00 PM EDT, Partial fill upon patient request if the prescription is for a schedule II opioid drug. Start Date: 08/14/24 Status: Ordered Medication Dispense Status: Completed Total Allowed Fills: 1 Fills Dispensed: 0 senna 187 mg oral tablet 1 tablet = 8.6 mg, By Mouth, Daily at bedtime, PRN as needed for constipation, 0 Refills, Maintenance, 01/01/25 1:11:00 PM EST, Tablet, Partial fill upon patient request if the prescription is for a schedule II opioid drug. Start Date: 01/01/25 Status: Ordered Medication Dispense Status: Completed Total Allowed Fills: 1 Fills Dispensed: 0 Testosterone Cypionate Inj Intramuscular, Every 21 days, 0 Refills, Maintenance, 08/14/24 1:00:00 PM EDT, Partial fill upon patient request if the prescription is for a schedule II opioid drug. Start Date: 08/14/24 Status: Ordered Medication Dispense Status: Completed Total Allowed Fills: 1 Fills Dispensed: 0 Tylenol 8 HR Arthritis Pain = 1,300 mg, By Mouth, Every 8 hours, 0 Refills, Maintenance, 01/01/25 6:10:00 AM EST, Partial fill upon patient request if the prescription is for a schedule II opioid drug. Start Date: 01/01/25 Status: Ordered Medication Dispense Status: Completed Total Allowed Fills: 1 Fills Dispensed: 0 Problem List Condition Confirmation Course Effective Dates Status Health St atus Informant Hip pain, right Confirmed Active Right tennis elbow Confirmed Active Lupus Confirmed Active Bilateral knee pain Confirmed Active Social History Social History Type Response Sexual Sexually involved in last 6 months: Yes. Smoking Status Never (less than 100 in lifetime) entered on: 07/24/23 Sex Sex Representation Female (finding) Patient Care team information Care Team Personnel Name: Joel Lane MD Position: [facility] Physician - Primary Care Member Role: PCP Address: [address] [place] [id number] Telecom: Care Team Related Persons Name: MARITALIAM Name: ERICA JANSEN Insurance Providers Guarantor name: GHISLAINE CORINNE [facility] Plan Information #: 1 Payer: [employer]ER [employer]ICE Payer Identifier: SERENA Member Number: [id number] Group Number: [id number] Subscriber Identifier: SERENA Relationship to Subscriber: self Coverage Type: MEDICAID Coverage Verification Date: SERENA Telecom: NA Address:
--- OUTSIDE RECORDS SUMMARY | 2025-01-16 23:59 | XMS_ITS | Continuity of Care Document ---
Author Organization [facility] ter Address [address] [place] [address]- Support Name Relationship Address Phone LONDRAVILLE, LINA [...] Relationship Unknown Unavailable Care Team Providers Care Manager Switch Name Role Phone Joel Lane MD Primary Care Physician [phone] Encounter [facility] Date(s): 12/17/24 - 01/16/[address] [address]- Attending Physician: Carlos Amin Admitting Physician: Carlos Amin Referring Physician: tr ArJasmine Encounter Type: Triage Allergies, Adverse Reactions, Alerts Substance Criticality Severity [...] Refills, Maintenance, 01/01/25 1:08:00 PM EST, Tablet, [facility], Partial fill upon patient [...] 1:08:00 PM EST, Route to Pharmacy Electronically, [facility], Partial fill upon patient [...] Team Personnel Name: Joel Lane MD Position: [facility] Physician - Primary Care Member Role: PCP Address: [address] [place] [address] Telecom: Care Team Related Persons Name: LIAM KIRKLAND Name: ERICA JANSEN Insurance Providers Guarantor name: [facility] Plan Information #: 1 Payer: [employer]ER [employer] Payer Identifier: NA Member Number: [id number] Group Number: [id number] Subscriber Identifier: NA Relationship to Subscriber: self Coverage Type: MEDICAID Coverage Verification Date: NA Telecom: NA Address: NA
[2025-01-20 18:16] LABS: Appearance Urine Clear; Glucose Urine UA Negative (Negative); PH 6.0 (5.0-9.0); Specific Gravity - Urine <= 1.005 (1.005-1.025)
[2025-01-20 18:36] LABS: MANUAL DIFF FLAG NO
[2025-01-20 19:10] LABS: Alanine Aminotransferase 34 U/L (0-31); Aspartate Amino Transferase 32 U/L (5-31); Estimated Glomerular Filt Rate > 60
[2025-01-20 19:18] LABS: Hematocrit 37.7 % (37.0-47.0); Hemoglobin 12.5 g/dl (12.0-16.0); Imm Gran Abs Auto 0.01 X10*3/uL (0.00-0.03); Imm Gran Pct Auto 0.2 % (0.0-0.4); Lymphocytes Absolute Auto 1.6 X10*3/uL (1.2-4.9); Mean Corpuscular HGB Conc 33.2 g/dl (31.0-35.0); Mean Corpuscular Hemoglobin 30.9 pg (27.0-33.0); Mean Corpuscular Volume 93.1 fL (80.0-98.0); NRBC Abs Auto 0.000 X10*3/uL (0.0-0.012); NRBC Pct Auto 0.0 /100WBC (0.0-0.2); Platelet Count 285 X10*3/uL (160-400); Red Blood Count 4.05 X10*6/uL (4.20-5.50); White Blood Count 4.3 X10*3/uL (4.8-10.8)
[2025-01-20 19:20] LABS: Total Protein Urine Random < 7 mg/dL (<12)
[2025-01-20 19:41] LABS: Erythrocyte Sedimentation Rate 24 MM/HR (0-20)
== END 2025-01-20 13:57 | disposition home or self-care (01) ==
LOC: HO.HKASLDS 13:56
PROVIDERS: PCP Internal Medicine; Visit Provider Internal Medicine Rheumatology
DX: M32.9 Systemic lupus erythematosus, unspecified (principal); Z79.899 Other long term (current) drug therapy
CPT/HCPCS: 36415; 81001; 82565; 82570; 84156; 84450; 84460; 85025; 85652; 86140; 86160; 86225

== ENCOUNTER 2025-01-20 13:56 | Outpatient (AMB) | payer OTHER, SELFPAY ==
[2025-01-20 14:05] VITALS: BP 100/50; PULSE 78; O2SAT 98; BMI 23.6
--- NOTE | 2025-01-20 14:05 | MHC.OFFVIS ---
Vital Signs 01/20/25 14:05 Height 5 ft 6 in Weight 146 lb 6.191 oz BMI 23.6 BP 100/50 L Blood Pressure Location Rt brachial Position Sitting Pulse 78 Pulse Source Pulse Oximeter Pulse Oximetry (%) 98 Oxygen Delivery Method Room Air Intake Visit Reasons: 3months Intake Note: Patient presents today for a lupus follow up Accompanied by: Spouse Allergies Penicillins (PENICILLINS) Allergy (Unknown, Verified 01/20/25 14:07) RASH Medication List - Last Reconciled 01/20/25 by Kojo Gallegos MD celecoxib (Celebrex) 200 mg PO DAILY creatine monohydrate ea PO estradiol moshe-testosteron enan 8-180 mg/mL mL IM hydroxychloroquine 200 mg PO DAILY 90 days progesterone micronized 200 mg PO BEDTIME HPI HPI 3months: Details: Febrile for 3 days after right hip surgery 2 weeks ago. Max T 100.5F. Took tylenol 650mg BID or TID. She had runny nose and sore throat 2 days prior to hip surgery but does not inform her surgical team. Symptoms resolved after a couple of days. She is recovering from surgery and participating in rehab. She took Celebrex 200 mg 2 days ago. An hour later she experienced epigastric pain. She was on pantoprazole prescribed by orthopedic surgery after discharge. Denies melena or hemoptysis. Denies recurrent fevers, dyspnea, pleurisy, rash, oral ulcers, urinary symptoms, Raynaud's phenomenon. She is experiencing right knee pain and swelling. She is using a walker to ambulate. [facility] Medical History Diverticulosis History of constipation History of lupus Intercostal pain Surgical History Hx of colonoscopy No pertinent past surgical history Family History Father CVD (cardiovascular disease) Cancer HTN (hypertension) Stroke Mother Alzheimer disease Sister No problems noted. Daughter No problems noted. Social History Housing: House Alcohol intake: current Alcohol intake frequency: holidays/special occasions only Patient Tobacco Use Status: Never used Tobacco e-Cigarette/Vaping Use: Never Used Second Hand Smoke Exposure: No service: No Current occupational status: employed Current occupational exposures/hazards: No Cognitive needs: No Hearing needs: No Vision needs: No Physical Exam Vital Signs: Last Vital Signs Pulse 78 01/20/25 14:05 BP 100/50 L 01/20/25 14:05 Pulse Ox 98 01/20/25 14:05 Oxygen Delivery Method Room Air 01/20/25 14:05 BMI result Body Mass Index 23.6 Const Other: General: Comfortable CVS: RRR Respiratory: clear to auscultation bilaterally. Good respiratory effort Skin: No lesions seen MSK: No tender joints. Squaring of CMCs. No synovitis. Normal range of motion of upper extremities and left lower extremity. Assessment & Plan Assessment & Plan (1) SLE (systemic lupus erythematosus): Comment: Controlled on hydroxychloroquine. Clinically quiescent. Chronic leukopenia is stable. She has intermittent thrombocytopenia. She is recovering from right hip surgery. She had total hip replacement. In setting of epigastric pain after Celebrex, I have asked her to avoid NSAIDs. She also reports history of peptic ulcer disease when she was young attributed to caffeine use. I have asked her to continue pantoprazole for another week. Rheumatology history: CLAUDIO 1:80. Diagnosed with recurrent fevers, leukopenia and thrombocytopenia (124K), resolved with HCQ. Code(s): M32.9 - Systemic lupus erythematosus, unspecified Category: Medical Plan: Continue hydroxychloroquine 200 mg daily. Requesting updated eye report after 08/11/2024 if patient has had OCT and visual field test. I am finding out the last day she had these test [facility]. Labs to evaluate for disease and drug monitoring ordered Avoiding oral NSAIDs at this time due to history of epigastric pain after Celebrex and history of peptic ulcer disease in the past. Return to clinic in 6 months. Orders: Orders Complete Blood Count Auto Diff Today M32.9 - Systemic lupus erythematosus, unspecified Alanine Aminotransferase Today M32.9 - Systemic lupus erythematosus, unspecified Complement C3 Today M32.9 - Systemic lupus erythematosus, unspecified Aspartate Amino Transferase Today M32.9 - Systemic lupus erythematosus, unspecified Complement C4 Today M32.9 - Systemic lupus erythematosus, unspecified Creatinine Today M32.9 - Systemic lupus erythematosus, unspecified UA ClnCatch+Micro w/rflx Cult Today M32.9 - Systemic lupus erythematosus, unspecified C Reactive Protein Today M32.9 - Systemic lupus erythematosus, unspecified Erythrocyte Sedimentation Rate Today M32.9 - Systemic lupus erythematosus, unspecified Protein Creatinine Ratio, Ur Today M32.9 - Systemic lupus erythematosus, unspecified Anti DNA DS Antibody Today M32.9 - Systemic lupus erythematosus, unspecified Coding Level of Care Code Est Pt Level 4 (14939) Complex visit Add On G2211 Diagnoses SLE (systemic lupus erythematosus) M32.9
--- OUTSIDE RECORDS SUMMARY | 2025-01-20 16:42 | XMS_ITS | Clinical Summary ---
Author Organization [facility] Health Address [address] [place] [address] Care Team Providers Care Fluxer Name Role Phone Unavailable Primary Care Provider [...] Diagnosis Comments PROPHYLAXIS - ADULT Routine 05/25/2024 2 :00 PM EDT Encounter for dental examination and cleaning without abnormal findings MASCARA MOLDER CBCT Routine 05/25/2024 1:00 PM EDT ORALFITNESSCHECK INITIAL SCREEN Routine 05/25/2024 1:00 PM EDT NEW PATIENT SPECIAL EXAM - ADULT Routine 05/25/2024 1:00 PM EDT from Last 3 Months or Most Recently Relevant to Health Maintenance
--- OUTSIDE RECORDS SUMMARY | 2025-01-20 16:42 | XMS_ITS | Patient Health Record ---
Author [facility] Address [address] [place] [address] Care Team Providers Care Stitcher Around Name Role Phone BARCLAYAILIN Primary Care Provider SUNNY RODRIGUEZ Jae [phone] Allergies Allergen (clinical drug ingredient) Drug/Non Drug Allergy documented on EMR Reaction Allergy Type Onset Date Status Penicillin Unknown Drug Allergy Active Results Component Value Reference Range Flag Notes Wet Prep Reviewed date:06/03/2024 06:12:16 PM Interpretation: Performing Lab:1, [facility], [address], [address], [facility], Phone - [phone] Notes/Report: CULTURE, GENITAL-[id number] Reviewed date:06/08/2024 04:26:41 PM Interpretation: Performing Lab:[place] [id number], [id number] Notes/Report: 0 CULTURE, GENITAL SEE NOTE A CULTURE, GENITAL Micro Number: [id number] Test Status: Final Specimen Source: Vaginal Specimen Quality: Adequate Result: Heavy growth of Group A Streptococcus isolated Beta-hemolytic streptococci are predictably susceptible to Penicillin and other beta-lactams. Susceptibility testing not routinely performed. Please contact the laboratory within 3 days if susceptibility testing is desired. CULTURE, URINE, ROUTINE-[id number] Reviewed date:06/08/2024 04:26:32 PM Interpretation: Performing Lab:[place] [id number], [id number] [id number]aw[address] Notes/Report: 0 CULTURE, URINE, ROUTINE SEE NOTE A CULTURE, URINE, ROUTINE Micro Number: [id number] Test Status: Final Specimen Source: Clean catch Specimen Quality: Adequate Result: 10,000-49,000 CFU/mL of Group A Streptococcus isolated Full UA w/micro Reviewed date:06/03/2024 06:12:24 PM Interpretation: Performing Lab:1, [facility], [address], [address], [facility], Phone - [phone] Notes/Report: Reason For Referral No Information Medications [...] Blood pressure diastolic 70 mm Hg 06/03/2024 Height 65 in 06/03/2024 Blood pressure systolic 110 mm Hg 06/03/2024 Weight 150.8 lbs 06/03/2024 BMI 25.09 kg/m2 06/03/2024 Procedures Procedure Date Ordered Date Performed Result Body Sit e PELVIC EXAMINATION 06/03/2024 N/A Encounters Encounter Location Date Provider Diagnosis [facility] [address] [place] [address] 06/03/2024 SUNNY RODRIGUEZ Vaginal discharge N89.8 and Vaginal itching N89.8 [facility] [address] [place] [address] 06/03/2024 SUNNY MICHAEL [facility] [address] [place] [address] 06/08/2024 SUNNY RODRIGUEZ Group A streptococca l [...]
--- OUTSIDE RECORDS SUMMARY | 2025-01-20 16:42 | XMS_ITS | Encounter Summary ---
Author Organization [facility] Health Address [address] [place] [address] Care Team Providers Care Billet Driller Name Role Phone Unavailable Primary Care Provider Unavailabl e Prior Encounters Date Type Department Care Team Description 05/25/2024 2:00 PM EDT Office Visit [facility] [address] [place] [address] [place], [facility] Encounter for dental examination and cleaning without abnormal findings (Primary Dx) 05/25/2024 1:00 PM EDT Office Visit [facility] [address] [place] [address] Soo Oliveira DMD Dental caries, [...] RADIOGRAPHIC IMAGE Routine 05/25/2024 1:00 PM EDT BREAD WRAPPER OPERATOR FOUR BITEWING XRAYS Routine 1:00 PM EDT NEW PATIENT SPECIAL EXAM - ADULT Routine 05/25/2024 1:00 PM EDT NEW PATIENT INTRAORAL - PERIAPICAL FIRST RADIOGRAPHIC IMAGE Routine 05/25/2024 1:00 PM EDT BREAD WRAPPER OPERATOR CBCT Routine 05/25/2024 1:00 PM EDT NEW [...]
== END 2025-01-20 15:30 | disposition home or self-care (01) ==
LOC: HO.RHES 13:56
PROVIDERS: PCP Internal Medicine; Visit Provider Internal Medicine Rheumatology
DX: M32.9 Systemic lupus erythematosus, unspecified (principal)
CPT/HCPCS: 99214; G2211